=== PATIENT | female | born 1935 | race Caucasian/White ===

== ENCOUNTER 2021-02-05 08:00 | Inpatient (IN) | payer MEDICARE, MEDICAID, SELFPAY ==
[2021-02-05] VITALS (14 sets, daily range): BP systolic 105–154; BP diastolic 58–136; PULSE 86–115; RESP 18–28; TEMP 36.4–37.4; O2SAT 80–99; BMI 23.9
--- NOTE | ~2021-02-05 | CT_ITS ---
EXAMINATION: CT CHEST WITHOUT CONTRAST CLINICAL INFORMATION: Left-sided infiltrate, evaluate for pneumonia versus CHF COMPARISON: CT of the chest 09/12/2019 and chest radiograph 02/05/2021 TECHNIQUE: Multidetector volumetric CT imaging of the chest was done. Axial MIP volume rendering provided. Sagittal and coronal reformatted images were obtained. This CT examination was performed using dose optimization techniques as appropriate, variously including the following: *Automated exposure control *Adjustment of mA and/or kV according to patient size (this includes techniques or standardized protocols for targeted exams where dose is matched to indication/reason for exam; i.e. extremities or head) *Use of iterative reconstruction technique DLP: 306 mGy-cm FINDINGS: ROTOPRINTER: Mild hypoinflation with bilateral pleural effusions. Left shoulder and left hip arthroplasties. Multiple vertebral plasties are visualized. LUNGS: There are multifocal areas of crazy paving with groundglass opacities and interstitial thickening throughout both lungs, most prominent in the left upper lobe. There are central perihilar areas of more confluent consolidation in the left upper lobe and right lower lobe. There is compressive atelectasis in the left lower lobe. MEDIASTINUM: There is mild cardiomegaly. Moderate to severe coronary calcifications. There are chunky calcifications of the mitral valve. No significant mediastinal or hilar lymphadenopathy. No pericardial effusion. Normal caliber of the thoracic aorta with scattered atherosclerotic calcifications. There is a large hiatal hernia, containing a majority of the stomach, unchanged since the prior study. PLEURA: There are small bilateral pleural effusions, left slightly greater than right. AXILLA: No lymphadenopathy. UPPER ABDOMEN: Unremarkable. OSSEOUS STRUCTURES: Multiple vertebroplasty changes are again demonstrated from T9 to L1. Again demonstrated is a compression fracture of the T8 vertebral body with 50-70% loss of height. There are mild compression deformities of T3 and T5, similar to the prior study. There is diffuse osteopenia. CT/CT chest wo con IMPRESSION: The focal areas of crazy paving throughout both lungs, most prominent in the left upper lobe. Additional central perihilar areas of more confluent consolidation in the left upper lobe and right lower lobe. Small bilateral pleural effusions with associated atelectasis at the left lung base. Differential diagnosis is broad and includes multifocal pneumonia, acute interstitial pneumonia, acute respiratory distress syndrome, pulmonary alveolar proteinosis, pulmonary edema, and pulmonary hemorrhage. Atypical infection such as mycoplasma and COVID-19 are also included. Recommend clinical correlation. Large hiatal hernia, unchanged since prior study. Redemonstration of multiple thoracic and upper lumbar vertebral body compression fractures, similar in appearance to the prior study with multiple levels demonstrating vertebroplasty changes.
--- NOTE | ~2021-02-05 | XR_ITS ---
EXAMINATION: XR CHEST CLINICAL INFORMATION: Hypoxia. Left lower lobe pneumonia. COMPARISON: Chest x-ray and CT 09/12/2019 TECHNIQUE: Frontal view of the chest was obtained. FINDINGS: The lungs are hypoexpanded with dense patchy opacity left lateral midlung likely new infiltrate. There is moderate opacification left lung base likely effusion/infiltrate/atelectasis. Minimal haziness in the right lung base as well. Heart size enlarged. Pulmonary vascularity is prominent. No evidence of congestion. There are multiple cement augmentations for lower thoracic compression fractures. XR/XR chest 1V IMPRESSION: New left midlung and left lower lobe infiltrates. Mild bibasilar haziness likely effusion or atelectasis.
--- NOTE | ~2021-02-05 | XR_ITS ---
EXAMINATION: XR CHEST CLINICAL INFORMATION: Follow-up after diuresis. COMPARISON: 02/05/2021 and 09/12/2019. TECHNIQUE: AP portable view of the chest was obtained. FINDINGS: There remains some perihilar interstitial haziness as well as region of disease within the right upper lobe. There appear to be small bilateral pleural effusions with some improvement in left base disease but still with airspace disease which appears to involve the lingula and left lower lobe. Heart normal size. No pneumothorax. Patient status post left shoulder arthroplasty. Patient has had multiple vertebroplasties/kyphoplasties. XR/XR chest 1V IMPRESSION: Bilateral regions of interstitial and airspace disease with perihilar component likely related to edema. There is persistence of the left upper lobe disease and now with region of disease within the right upper lobe. This may be related to interstitial or atypical pneumonitis and edema may be related to pulmonary edema of cardiogenic or noncardiogenic etiology.
--- NOTE | 2021-02-05 08:48 | ECG_ITS ---
Test Reason : SOB Blood Pressure : / mmHG Vent. Rate : 103 BPM Atrial Rate : 088 BPM P-R Int : 000 ms QRS Dur : 092 ms QT Int : 348 ms P-R-T Axes : 000 031 117 degrees QTc Int : 455 ms Artifact in tracing Likely sinus with PACs Nonspecific ST and T wave abnormality Abnormal ECG When compared with ECG of 12-SEP-2019 14:26, Criteria for Inferior infarct are no longer Present T wave inversion less evident in Anterior leads Inverted T waves have replaced nonspecific T wave abnormality in Lateral leads QT has shortened Referred By: Jason Maurice Electronically Signed By:SUZE JOHNSON
[2021-02-05 09:17] LABS: MANUAL DIFF FLAG NO
[2021-02-05 09:20] LABS: Basophils Percent Auto 0.3 % (0-2); Eosinophils Absolute Auto 0.2 X10*3/uL (0.0-0.4); Hemoglobin 10.6 g/dl (12.0-16.0); Imm Gran Abs Auto 0.03 X10*3/uL (0.00-0.03); Imm Gran Pct Auto 0.3 % (0.0-0.4); Lymphocytes Absolute Auto 0.8 X10*3/uL (1.2-4.9); Lymphocytes Percent Auto 6.9 % (20-40); Mean Corpuscular HGB Conc 31.2 g/dl (31.0-35.0); Mean Corpuscular Hemoglobin 26.2 pg (27.0-33.0); Mean Corpuscular Volume 84.2 fL (80-98); Monocytes Absolute Auto 1.1 X10*3/uL (0.1-1.2); Monocytes Percent Auto 9.2 % (2-11); Neutrophils Absolute Auto 9.2 X10*3/uL (2.0-8.3); Neutrophils Percent Auto 81.3 % (45-73); Platelet Count 264 X10*3/uL (160-400); Red Blood Count 4.04 X10*6/uL (4.20-5.50); Red Cell Distribution Width 16.7 % (11.0-16.0); White Blood Count 11.4 X10*3/uL (4.8-10.8)
[2021-02-05] MEDS: cefEPime HCl 2 GM in 0.9 % Sodium Chloride 50 ML IV (09:22)
[2021-02-05] MEDS: 0.9 % Sodium Chloride 1,000 ML 999 ML IV (09:22)
[2021-02-05 09:35] LABS: COVID-19 Test Negative (Negative); IDNOW Serial# 08D9AD1C
[2021-02-05 09:40] LABS: Lactic Acid 2.4 mmol/L (0.5-2.0)
[2021-02-05 09:43] LABS: Alanine Aminotransferase 9 U/L (0-31); Albumin Level 3.2 g/dL (3.5-5.0); Alkaline Phosphatase 42 U/L (39-117); Anion Gap 18 (12-20); Aspartate Amino Transferase 16 U/L (5-31); Bilirubin Total 0.5 mg/dL (0.0-1.0); Blood Urea Nitrogen 30 mg/dL (9-16); Calcium 8.4 mg/dL (8.4-10.2); Carbon Dioxide 22 mmol/L (22-29); Chloride 99 mmol/L (96-108); Creatinine Clr Calc Pharmacy 30.1; Estimated Glomerular Filt Rate 41; Glucose Random 95 mg/dL (60-115); Lipase 16 U/L (8-78); Potassium 4.1 mmol/L (3.3-5.1); Sodium 135 mmol/L (135-145); Total Protein 6.1 g/dL (6.5-8.0)
[2021-02-05 09:49] LABS: B Type Natriuretic Peptide 3188 pg/mL (<100); Troponin-I High Sensitivity 323.3 ng/L (<3.5-17.0)
--- NOTE | 2021-02-05 10:28 | ED.GENADULT ---
HPI - General Adult General Chief complaint: Dyspnea Stated complaint: respiratory infection Time Seen by Provider: 02/05/21 08:37 Source: patient Mode of arrival: EMS Limitations: no limitations History of Present Illness HPI narrative: 85-year-old female who was sent to the emergency department from her care facility for evaluation of increased shortness of breath hypoxia. The patient was diagnosed with a left basilar pneumonia on 01/30/2021 and started on Levaquin. Today the patient was noted to be dyspneic and found to have hypoxia with her O2 saturations in the 80% range on room air, therefore she was sent to the emergency department for evaluation. The patient states that she has been short of breath and had a productive cough for the past 3 days. She states she is coughing up thick, yellow, dark sputum. She denied chest pain, fever or chills. She states that she has had nausea and dry heaves. She denied abdominal pain, change in bowel movements, diarrhea. Related Data Home Medications Medication Instructions Recorded Confirmed albuterol sulfate [ProAir HFA] 1 puff INHALATION QID PRN 02/05/21 02/05/21 alendronate [Fosamax] 70 mg PO QWEEK 02/05/21 02/05/21 aspirin 81 mg PO DAILY 02/05/21 02/05/21 bisacodyl [Dulcolax (bisacodyl)] 10 mg PA DAILY PRN 02/05/21 02/05/21 calcium carbonate [Oyster Shell 500 mg PO BID 02/05/21 02/05/21 Calcium] cholecalciferol (vitamin D3) 5,000 unit PO DAILY 02/05/21 02/05/21 [Vitamin D3] diltiazem HCl 180 mg PO DAILY 02/05/21 02/05/21 fluoxetine [Prozac] 40 mg PO DAILY 02/05/21 02/05/21 fluticasone propion-salmeterol 1 puff INHALATION BID 02/05/21 02/05/21 [Advair Diskus] fluticasone propionate [Flonase] 1 spray INTRANASAL DAILY PRN 02/05/21 02/05/21 guaifenesin [Robitussin] 200 mg PO Q4H PRN 02/05/21 02/05/21 levofloxacin [Levaquin] 500 mg PO DAILY 02/05/21 02/05/21 loratadine [Claritin] 10 mg PO DAILY 02/05/21 02/05/21 metoprolol tartrate 0.5 tab PO DAILY 02/05/21 02/05/21 mirtazapine [Remeron] 15 mg PO BEDTIME 02/05/21 02/05/21 montelukast [Singulair] 10 mg PO QPM 02/05/21 02/05/21 omeprazole 40 mg PO DAILY 02/05/21 02/05/21 prednisone 7.5 mg PO DAILY 02/05/21 02/05/21 umeclidinium [Incruse Ellipta] 1 inh INHALATION DAILY 02/05/21 02/05/21 Allergies Allergy/AdvReac Type Severity Reaction Status Date / Time Penicillins Allergy Intermediate RASH Unverified 05/25/20 15:01 penicillin V Allergy Unknown Verified 07/25/16 00:00 From ZOLOFT Allergy Unknown SWEATS, Uncoded 05/25/20 15:01 JITTERY Review of Systems Review of Systems: Yes all other systems are reviewed and are negative [facility] Past Medical History [facility] Narrative: Social history: The patient denies tobacco, alcohol or drug use. She is currently residing in a [facility] facility. 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 Cognitive impairment, mild, so stated COPD (chronic obstructive pulmonary disease) Diaphragmatic hernia Dysphagia HTN (hypertension) Hyperlipemia Major depression Osteoporosis Surgical History Stented coronary artery Social History Social History Smoked in Last 30 Days: No Use of substances other than those prescribed or required for medical reasons: No Advance Directives: Yes Advance Directives Information Provided: No Advance Directives on File: No Physical Exam Vital Signs: Vital Signs: Last Vital Signs Temp 99.3 F 02/05/21 08:05 Pulse 93 02/05/21 13:03 Resp 22 H 02/05/21 13:03 BP 121/64 02/05/21 13:03 Pulse Ox 95 02/05/21 13:03 Oxygen Flow Rate 4 02/05/21 08:05 Body Mass Index 23.9 Const: General: cooperative; No in distress Orientation/consciousness: oriented to person and oriented to place Limitations: no limitations HENMT: Head: Yes normal to inspection, Yes normocephalic and Yes atraumatic Ears: external ears normal General nose exam: Normal external nose present Face and sinus: Yes normal facial exam Mouth: Normal oral and palatal mucosa present Throat: Yes posterior oropharynx normal Eyes: Periorbital: periorbital findings normal Eyelids: Yes eyelids normal Conjunctivae: conjunctivae normal Sclerae: sclerae normal Corneas: corneas normal Pupils: Equal, round and reactive pupils present Direct Ophthalmoscopy: normal light reflex Neck: Neck: Yes full ROM, Yes no lymphadenopathy, Yes no meningeal signs, Yes trachea midline and Yes supple Chest: Chest palpation & inspection: normal inspection of the chest and normal palpation of entire chest wall Resp: Effort & Inspection: able to speak in complete sentences Auscultation: rales bilateral at the base, rhonchi throughout and no wheezes Cardio: Rate: tachycardic Rhythm: abnormal rhythm irregularly irregular Heart sounds: S1 normal heart sound present, S2 normal heart sound present and no murmurs GI: Inspection: Yes normal to inspection Palpation (GI): Soft to palpation, nontender, no guarding, not rigid and No hepatosplenomegaly present : General: Yes no CVA tenderness Back/Spine/Pelvis: Back: no CVA tenderness Cervical Spine: normal cervical lordosis Thoracic/Lumbar Spine: thoracic and lumbar spine normal to inspection Skin: Lesions: no lesions Rashes: no rashes Wounds: no wounds Neuro: General: oriented to person, oriented to place and no meningeal signs Cranial nerves: Yes CN's II-XII intact bilaterally and Yes Equal, round and reactive pupils present Cognition (Neuro): normal cognition Motor exam (neuro): 5/5 motor strength present throughout Extrem: General: Yes normal to inspection and Yes full ROM Psych: Appearance: well kempt Mental Status: mental status grossly normal Speech and movement: Normal speech and movement present Affect: normal affect Attitude: cooperative Thought process: Normal thought process present Thought content: Normal thought content present Course Course Course Narrative: 85-year-old female who presents emergency department for evaluation of increased shortness of breath and hypoxia. Patient was diagnosed with left basilar pneumonia on 01/30/2021 and has been on Levaquin. The patient was found to be hypoxic at her nursing facility with O2 saturations the 80% range. The patient was placed on a non-rebreather with improvement of her O2 saturation to 96-98%. Vital signs revealed tachycardia with a pulse of 105 and an elevated respiratory rate of 24. Initial pulse ox reading was 89% on 4 L via nasal cannula. Lung exam revealed rales at the bases with diffuse rhonchi without wheezing. Exam is otherwise unremarkable. I did order a CBC, CMP, lactate, blood cultures x2, chest x-ray, EKG. The patient does meet SIRS criteria and she was ordered to get cefepime 2 g IV to treat her for healthcare acquired pneumonia. 1105: Patient's WBC was elevated 11,400, she was anemic with an H&H of 10.6 and 34.0. Platelet count was normal 246,000. Elevated at 30 with slight elevation in her creatinine of 1.25-this is chronic. Patient's BNP was elevated 3188. The patient's troponin was also elevated at 323.3. Patient's 12 EKG revealed atrial fibrillation with a rate of [address] segment elevation depression suggests that the patient has had an NSTEMI most likely type 2 injury secondary to hypoxia. I did discuss the elevated troponin with the covering vp platforms, who recommended the patient be treated with heparin and aspirin. The patient complains of increased dyspnea and she is currently on a non-rebreather mask. I did discuss code status with the patient and with the patient's son Hussein. The patient states that she does not want CPR and she does not want intubation/ventilator support. She does agree with noninvasive support this time which would include high-flow oxygen and BiPAP. I will order high-flow oxygen to see if this improves or dyspnea. I will discuss the patient's presentation with the covering collarette separator. 1143: I did discuss the patient's presentation with the covering collarette separator, and he evaluated the patient emergency department. His impression is the patient may have congestive heart failure supposed pneumonia and he recommended stopping the IV fluid. He recommended furosemide 20 mg IV. He also recommended that the patient get a CT scan of the chest without IV contrast to evaluate whether the patient has pneumonia verses pulmonary edema. He did agree that high-flow oxygen via nasal cannula may give the patient some peep and may improve her dyspnea. He felt that the patient could be managed on the intermediate care unit I will discuss admission with the covering hospitalist. 1205: I discussed patient's presentation with the covering hospitalist, Dr. Briseno. 1335: CT scan of the chest without IV contrast radiology reading was reviewed by me. The reading is consistent with a multifocal interstitial pneumonia versus pulmonary edema/pulmonary hemorrhage. At this time I do not think that this changes the treatment plan. Medical Decision Making Lab Data Result diagrams: 02/05/21 09:11 02/05/21 09:11 Labs: Lab Results 02/05/21 02/05/21 02/05/21 Range/Units 09:10 09:10 09:11 WBC 11.4 H (4.8-10.8) X10*3/uL RBC 4.04 L (4.20-5.50) X10*6/uL Hgb 10.6 L (12.0-16.0) g/dl Hct 34.0 L (37-47) % MCV 84.2 (80-98) fL MCH 26.2 L (27.0-33.0) pg MCHC 31.2 (31.0-35.0) g/dl RDW 16.7 H (11.0-16.0) % Plt Count 264 (160-400) X10*3/uL MPV 10.0 (9.4-12.3) fL Immature Gran % (Auto) 0.3 (0.0-0.4) % Neut % (Auto) 81.3 H (45-73) % Lymph % (Auto) 6.9 L (20-40) % [place] % (Auto) 9.2 (2-11) % Eos % (Auto) 2.0 (0-4) % Baso % (Auto) 0.3 (0-2) % Lymph # (Auto) 0.8 L (1.2-4.9) X10*3/uL [place] # (Auto) 1.1 (0.1-1.2) X10*3/uL Eos # (Auto) 0.2 (0.0-0.4) X10*3/uL Baso # (Auto) 0.0 (0.0-0.2) X10*3/uL Abs Immat Gran (auto) 0.03 (0.00-0.03) X10*3/uL Absolute Neuts (auto) 9.2 H (2.0-8.3) X10*3/uL Absolute Nucleated RBC 0.000 (0.0-0.012) X10*3/uL Nucleated RBC % (auto) 0.0 (0.0-0.2) /100WBC PT (10.8-13.0) SEC INR (0.9-1.1) PTT (Heparin Protocol) (53-77.9) SEC Sodium (135-145) mmol/L Potassium (3.3-5.1) mmol/L Chloride (96-108) mmol/L Carbon Dioxide (22-29) mmol/L Anion Gap (12-20) BUN (9-16) mg/dL Creatinine (0.5-1.4) mg/dL Estim Creat Clear Calc Estimated GFR Random Glucose (60-115) mg/dL Lactic Acid 2.4 H* (0.5-2.0) mmol/L Lactic Acid Fup @ 2Hr (0.5-2.0) mmol/L Calcium (8.4-10.2) mg/dL Total Bilirubin (0.0-1.0) mg/dL AST (5-31) U/L ALT (0-31) U/L Alkaline Phosphatase (39-117) U/L Troponin I High Sens (<3.5-17.0) ng/L B-Natriuretic Peptide (<100) pg/mL Total Protein (6.5-8.0) g/dL Albumin (3.5-5.0) g/dL Lipase (8-78) U/L COVID-19 ([facility]) Negative (Negative) COVID-19 Clin Com See Note 02/05/21 02/05/21 02/05/21 Range/Units 09:11 09:11 11:11 WBC (4.8-10.8) X10*3/uL RBC (4.20-5.50) X10*6/uL Hgb (12.0-16.0) g/dl Hct (37-47) % MCV (80-98) fL MCH (27.0-33.0) pg MCHC (31.0-35.0) g/dl RDW (11.0-16.0) % Plt Count (160-400) X10*3/uL MPV (9.4-12.3) fL Immature Gran % (Auto) (0.0-0.4) % Neut % (Auto) (45-73) % Lymph % (Auto) (20-40) % [place]auf[place] % (Auto) (2-11) % Eos % (Auto) (0-4) % Baso % (Auto) (0-2) % Lymph # (Auto) (1.2-4.9) X10*3/uL [place] # (Auto) (0.1-1.2) X10*3/uL Eos # (Auto) (0.0-0.4) X10*3/uL Baso # (Auto) (0.0-0.2) X10*3/uL Abs Immat Gran (auto) (0.00-0.03) X10*3/uL Absolute Neuts (auto) (2.0-8.3) X10*3/uL Absolute Nucleated RBC (0.0-0.012) X10*3/uL Nucleated RBC % (auto) (0.0-0.2) /100WBC PT (10.8-13.0) SEC INR (0.9-1.1) PTT (Heparin Protocol) (53-77.9) SEC Sodium 135 (135-145) mmol/L Potassium 4.1 (3.3-5.1) mmol/L Chloride 99 (96-108) mmol/L Carbon Dioxide 22 (22-29) mmol/L Anion Gap 18 (12-20) BUN 30 H (9-16) mg/dL Creatinine 1.25 (0.5-1.4) mg/dL Estim Creat Clear Calc 30.1 Estimated GFR 41 Random Glucose 95 (60-115) mg/dL Lactic Acid (0.5-2.0) mmol/L Lactic Acid Fup @ 2Hr (0.5-2.0) mmol/L Calcium 8.4 (8.4-10.2) mg/dL Total Bilirubin 0.5 (0.0-1.0) mg/dL AST 16 (5-31) U/L ALT 9 (0-31) U/L Alkaline Phosphatase 42 (39-117) U/L Troponin I High Sens 323.3 H* 302.5 H* (<3.5-17.0) ng/L B-Natriuretic Peptide 3188 H (<100) pg/mL Total Protein 6.1 L (6.5-8.0) g/dL Albumin 3.2 L (3.5-5.0) g/dL Lipase 16 (8-78) U/L COVID-19 ([facility]) (Negative) COVID-19 Clin Com 02/05/21 02/05/21 Range/Units 11:51 11:52 WBC (4.8-10.8) X10*3/uL RBC (4.20-5.50) X10*6/uL Hgb (12.0-16.0) g/dl Hct (37-47) % MCV (80-98) fL MCH (27.0-33.0) pg MCHC (31.0-35.0) g/dl RDW (11.0-16.0) % Plt Count (160-400) X10*3/uL MPV (9.4-12.3) fL Immature Gran % (Auto) (0.0-0.4) % Neut % (Auto) (45-73) % Lymph % (Auto) (20-40) % [place] % (Auto) (2-11) % Eos % (Auto) (0-4) % Baso % (Auto) (0-2) % Lymph # (Auto) (1.2-4.9) X10*3/uL [place] # (Auto) (0.1-1.2) X10*3/uL Eos # (Auto) (0.0-0.4) X10*3/uL Baso # (Auto) (0.0-0.2) X10*3/uL Abs Immat Gran (auto) (0.00-0.03) X10*3/uL Absolute Neuts (auto) (2.0-8.3) X10*3/uL Absolute Nucleated RBC (0.0-0.012) X10*3/uL Nucleated RBC % (auto) (0.0-0.2) /100WBC PT 14.7 H (10.8-13.0) SEC INR 1.2 H (0.9-1.1) PTT (Heparin Protocol) 26.8 L (53-77.9) SEC Sodium (135-145) mmol/L Potassium (3.3-5.1) mmol/L Chloride (96-108) mmol/L Carbon Dioxide (22-29) mmol/L Anion Gap (12-20) BUN (9-16) mg/dL Creatinine (0.5-1.4) mg/dL Estim Creat Clear Calc Estimated GFR Random Glucose (60-115) mg/dL Lactic Acid (0.5-2.0) mmol/L Lactic Acid Fup @ 2Hr 1.7 (0.5-2.0) mmol/L Calcium (8.4-10.2) mg/dL Total Bilirubin (0.0-1.0) mg/dL AST (5-31) U/L ALT (0-31) U/L Alkaline Phosphatase (39-117) U/L Troponin I High Sens (<3.5-17.0) ng/L B-Natriuretic Peptide (<100) pg/mL Total Protein (6.5-8.0) g/dL Albumin (3.5-5.0) g/dL Lipase (8-78) U/L COVID-19 ([facility]) (Negative) COVID-19 Clin Com ECG Data Attestation: I personally reviewed and interpreted this ECG as follows: Interpretation: 0939: Atrial fibrillation with a rate of 103, normal QRS and QTC durations, Q-wave in lead 3, poor R-wave progression V1 to V2, no ST segment elevation, no ST segment depression, no significant T-wave abnormalities, no old EKG for comparison Critical Care Time Critical Care Time Critical Care Time: Yes Total Critical Care Time: 45 Attestation: Critical Care: The patient was critically ill with a high probability of imminent or life threatening deterioration. I spent greater than 30 minutes of discontinuous time evaluating the patient,delivering critical care at the bedside, discussing and evaluating pertinent data with consultants. Critical care time does not include time spent performing separately billable procedures or teaching. Total time spent performing critical care was 45 minutes. Discharge Plan Discharge Clinical Impression: Non-STEMI (non-ST elevated myocardial infarction), Pulmonary edema Pneumonia Qualifiers: Pneumonia type: due to unspecified organism Laterality: left Lung location: unspecified part of lung Qualified Code(s): J18.9 - Pneumonia, unspecified organism Patient Disposition: Home, Self-Care
[2021-02-05 11:15] LABS: Reflex Lactate? Lactic Acid Added
[2021-02-05] MEDS: Aspirin 81 MG TAB.CHEW 162 MG PO (11:43)
[2021-02-05] MEDS: Furosemide 20 MG/2 ML VIAL IVPUSH (11:44)
--- NOTE | 2021-02-05 11:45 | PM.CCN ---
Critical Care Event Note Summary Date of Service: 02/05/21 Code activated: No Narrative: 85-year-old lady with underlying history of combined systolic and diastolic heart failure been evaluated in ER on 02/05/2021 for progressive hypoxia. Patient has been treated with Levaquin at her of facility for the prior 6 days with no significant changes. She has been coughing yellow sputum for 2 weeks. She has minimal leukocytosis, elevated troponin and BNP, chest x-ray with bibasilar opacities. Patient is normotensive and requires 6 L of supplemental oxygen. She does complain of recently worsening lower extremity edema. Patient has been started on heparin drip and aspirin for likely NSTEMI. Patient appears to be in exacerbation of underlying combined systolic and diastolic heart failure. Would consider IV diuresis and admission to telemetry unit. At this time patient does not require intensive care unit level of care. Please notify for re-evaluation, if patient's condition changes. Critical Care Time (minutes): 0
[2021-02-05 11:58] LABS: Troponin-I High Sensitivity 302.5 ng/L (<3.5-17.0)
[2021-02-05 12:05] LABS: INTERNATIONAL NORM RATIO 1.2 (0.9-1.1); Prothrombin Time 14.7 SEC (10.8-13.0)
[2021-02-05 12:08] LABS: PTT Heparin Drip 26.8 SEC (53-77.9)
[2021-02-05 12:16] LABS: ~Lactic Acid-LAB USE ONLY 1.7 mmol/L (0.5-2.0)
[2021-02-05] MEDS: Heparin Sodium,Porcine 5,000 UNIT/ML VIAL 3900 UNIT IVPUSH (12:16)
[2021-02-05] MEDS: Heparin Sodium,Porcine/1/2NS 25,000 UNIT/250 ML IV.SOLN 7.84 UNIT IVCONT (12:17)
--- NOTE | 2021-02-05 12:29 | P.HPHOSP_ITS ---
History of Present Illness Date of Service: 02/05/21 Chief Complaint: sob, cough 85F presented complaining of shortness of breath and cough. patient is alert and oriented but having difficulty giving history due to shortness of breath, she was brought be EMS from care facility for complaint of sob and hypoxia. she had been treated for pneumonia with levaquin since 01/30/21. on day of presentation patients sob worsened as did her productive cough, she was noted to have hypoxia of 80% so EMS was called. in ED noted to have hypoxia, elevated bnp and troponin. She was seen by mortising machine operator who recommended diuresis high flow, cardiology recommended IV heparin. she was given cefepime. 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 Cognitive impairment, mild, so stated COPD (chronic obstructive pulmonary disease) Diaphragmatic hernia Dysphagia HTN (hypertension) Hyperlipemia Major depression Osteoporosis Family history: reviewed and not pertinent Surgical History Stented coronary artery Social History Smoked in Last 30 Days: No Use of substances other than those prescribed or required for medical reasons: No Advance Directives: Yes Advance Directives Information Provided: No Advance Directives on File: No Meds Allergies Allergy/AdvReac Type Severity Reaction Status Date / Time Penicillins Allergy Intermediate RASH Unverified 05/25/20 15:01 penicillin V Allergy Unknown Verified 07/25/16 00:00 From ZOLOFT Allergy Unknown SWEATS, Uncoded 05/25/20 15:01 JITTERY Active Medications: Current Medications Generic Name Dose Route Start Last Admin Trade Name Freq PRN Reason Stop Dose Admin Heparin Sodium (Porcine) 2,600 unit 02/05/21 11:03 Heparin Sodium,Porcine 5,000 Unit/Ml Vial 40 unit/kg (2600 unit) IVPUSH BOLUS PRN 40 unit/kg - Heparin Protocol Heparin Sodium (Porcine) 5,200 unit 02/05/21 11:03 Heparin Sodium,Porcine 5,000 Unit/Ml Vial 80 unit/kg (5200 unit) IVPUSH BOLUS PRN 80 unit/kg - Heparin Protocol Heparin Sodium/Sodium Chloride 25,000 unit in 250 mls @ 0 mls/hr 02/05/21 11:30 02/05/21 12:17 IVCONT 12 units/kg/hr .Q0M RADHA 7.84 mls/hr Administration Protocol Per Protocol Home Medications Medication Instructions Recorded Confirmed Last Taken Type albuterol sulfate [ProAir HFA] 1 puff INHALATION QID PRN 02/05/21 02/05/21 Unknown History alendronate [Fosamax] 70 mg PO QWEEK 02/05/21 02/05/21 Unknown History aspirin 81 mg PO DAILY 02/05/21 02/05/21 Unknown History bisacodyl [Dulcolax (bisacodyl)] 10 mg [place] DAILY PRN 02/05/21 02/05/21 Unknown History calcium carbonate [Oyster Shell 500 mg PO BID 02/05/21 02/05/21 Unknown History Calcium] cholecalciferol (vitamin D3) 5,000 unit PO DAILY 02/05/21 02/05/21 Unknown History [Vitamin D3] diltiazem HCl 180 mg PO DAILY 02/05/21 02/05/21 Unknown History fluoxetine [Prozac] 40 mg PO DAILY 02/05/21 02/05/21 Unknown History fluticasone propion-salmeterol 1 puff INHALATION BID 02/05/21 02/05/21 Unknown History [Advair Diskus] fluticasone propionate [Flonase] 1 spray INTRANASAL DAILY PRN 02/05/21 02/05/21 Unknown History guaifenesin [Robitussin] 200 mg PO Q4H PRN 02/05/21 02/05/21 Unknown History levofloxacin [Levaquin] 500 mg PO DAILY 02/05/21 02/05/21 Unknown History loratadine [Claritin] 10 mg PO DAILY 02/05/21 02/05/21 Unknown History metoprolol tartrate 0.5 tab PO DAILY 02/05/21 02/05/21 Unknown History mirtazapine [Remeron] 15 mg PO BEDTIME 02/05/21 02/05/21 Unknown History montelukast [Singulair] 10 mg PO QPM 02/05/21 02/05/21 Unknown History omeprazole 40 mg PO DAILY 02/05/21 02/05/21 Unknown History prednisone 7.5 mg PO DAILY 02/05/21 02/05/21 Unknown History umeclidinium [Incruse Ellipta] 1 inh INHALATION DAILY 02/05/21 02/05/21 Unknown History Physical Exam Vital Signs and Narrative: Vital Signs: Last Vital Signs Temp 99.3 F 02/05/21 08:05 Pulse 92 02/05/21 12:21 Resp 27 H 02/05/21 12:21 BP 118/59 L 02/05/21 12:21 Pulse Ox 96 02/05/21 12:21 Oxygen Flow Rate 4 02/05/21 08:05 Body Mass Index 23.9 General: ill appearing, dyspneic HEENT: atraumatic Neck: normal to visual inspection CVS: S1, S2, Rapid, irregular Resp: rhonchi Chest: non tender GI: soft, non tender, non distended : no CVA tenderness Skin: no rashes Extremities: no edema Neuro: Oriented X3, grossly intact Psych: cooperative Results Labs CBC and Chem 7: 02/05/21 09:11 02/05/21 09:11 Labs: Laboratory Results - last 24 hr 02/05/21 02/05/21 02/05/21 09:10 09:10 09:11 MCV 84.2 MCH 26.2 L MCHC 31.2 RDW 16.7 H Plt Count 264 MPV 10.0 Immature Gran % (Auto) 0.3 Neut % (Auto) 81.3 H Lymph % (Auto) 6.9 L [place] % (Auto) 9.2 Eos % (Auto) 2.0 Baso % (Auto) 0.3 Lymph # (Auto) 0.8 L [place] # (Auto) 1.1 Eos # (Auto) 0.2 Baso # (Auto) 0.0 Abs Immat Gran (auto) 0.03 Absolute Neuts (auto) 9.2 H Absolute Nucleated RBC 0.000 Nucleated RBC % (auto) 0.0 PT INR PTT (Heparin Protocol) Anion Gap Estim Creat Clear Calc Estimated GFR Random Glucose Lactic Acid 2.4 H* Lactic Acid Fup @ 2Hr Calcium Total Bilirubin AST ALT Alkaline Phosphatase Troponin I High Sens B-Natriuretic Peptide Total Protein Albumin Lipase COVID-19 ([facility]) Negative COVID-19 Clin Com See Note 02/05/21 02/05/21 02/05/21 09:11 09:11 11:11 MCV MCH MCHC RDW Plt Count MPV Immature Gran % (Auto) Neut % (Auto) Lymph % (Auto) [place] % (Auto) Eos % (Auto) Baso % (Auto) Lymph # (Auto) [place] # (Auto) Eos # (Auto) Baso # (Auto) Abs Immat Gran (auto) Absolute Neuts (auto) Absolute Nucleated RBC Nucleated RBC % (auto) PT INR PTT (Heparin Protocol) Anion Gap 18 Estim Creat Clear Calc 30.1 Estimated GFR 41 Random Glucose 95 Lactic Acid Lactic Acid Fup @ 2Hr Calcium 8.4 Total Bilirubin 0.5 AST 16 ALT 9 Alkaline Phosphatase 42 Troponin I High Sens 323.3 H* 302.5 H* B-Natriuretic Peptide 3188 H Total Protein 6.1 L Albumin 3.2 L Lipase 16 COVID-19 ([facility]) COVID-[employer] 02/05/21 02/05/21 11:51 11:52 MCV MCH MCHC RDW Plt Count MPV Immature Gran % (Auto) Neut % (Auto) Lymph % (Auto) [place] % (Auto) Eos % (Auto) Baso % (Auto) Lymph # (Auto) [place] # (Auto) Eos # (Auto) Baso # (Auto) Abs Immat Gran (auto) Absolute Neuts (auto) Absolute Nucleated RBC Nucleated RBC % (auto) PT 14.7 H INR 1.2 H PTT (Heparin Protocol) 26.8 L Anion Gap Estim Creat Clear Calc Estimated GFR Random Glucose Lactic Acid Lactic Acid Fup @ 2Hr 1.7 Calcium Total Bilirubin AST ALT Alkaline Phosphatase Troponin I High Sens B-Natriuretic Peptide Total Protein Albumin Lipase COVID-19 ([facility]TE[facility]) COVID-19 D4P Com Imaging Radiologist's Impressions: Impressions Chest X-Ray 02/05/21 08:49 IMPRESSION: New left midlung and left lower lobe infiltrates. Mild bibasilar haziness likely effusion or atelectasis. Assessment and Plan (1) A-fib: Status: Acute 85F presented with sob and cough, found to have hypoxia, pneumonia, nstemi Severe sepsis present on admission secondary to pneumonia complicated by acute a hypoxic respiratory failure and acute on chronic systolic and diastolic CHF and NSTEMI Ceftriaxone, follow up cultures High-flow O2, patient is DNR DNI but open to noninvasive ventilation IV Lasix IV heparin, 48 hours, echo, cardiology eval COPD with exacerbation Bronchodilators, steroids CAD Aspirin AFib IV heparin (does not appear to be on anticoagulation at home) Metoprolol, diltiazem Osteoporosis Holding alendronate
[2021-02-05] MEDS: methylPREDNISolone Sod Succ 40 MG/ML VIAL IVPUSH (14:35)
[2021-02-05] MEDS: 0.9 % Sodium Chloride Flush 3 ML SYRINGE IVFLUSH ×2 (14:41→21:00)
[2021-02-05] MEDS: Furosemide 40 MG/4 ML VIAL IVPUSH (17:04)
[2021-02-05 20:17] LABS: PTT Heparin Drip 97.8 SEC (53-77.9)
[2021-02-05] MEDS: Montelukast Sodium 10 MG TABLET PO (21:00)
[2021-02-05] MEDS: Mirtazapine 15 MG TABLET PO (21:00)
--- NOTE | 2021-02-05 21:28 | PC.NURSE ---
ptt hd at 1940 came back as 119. Heparin gtt not turned off during draw. notified. pump shut off and ptthd was redrawn at 1999. Results came back 97.8. Pump left off for 1 hour per protocol. Restarted at 2100 at 9units/kg/hr. Redraw ordered for 0300 on 02/06/21.
--- NOTE | 2021-02-05 23:08 | PC.NURSE ---
pt had 4 bt vtach at 2300. pt asymptomatic. aware. will reassess
[2021-02-06] VITALS (13 sets, daily range): BP systolic 94–123; BP diastolic 57–74; PULSE 69–130; RESP 18–26; TEMP 35.6–36.7; O2SAT 92–99
[2021-02-06 00:06] LABS: Anion Gap 20 (12-20); Blood Urea Nitrogen 32 mg/dL (9-16); Carbon Dioxide 22 mmol/L (22-29); Chloride 101 mmol/L (96-108); Creatinine Clr Calc Pharmacy 28.3; Estimated Glomerular Filt Rate 38; Glucose Random 131 mg/dL (60-115); Magnesium 2.1 mg/dL (1.6-2.6); Potassium 3.7 mmol/L (3.3-5.1); Sodium 139 mmol/L (135-145)
[2021-02-06] MEDS: methylPREDNISolone Sod Succ 40 MG/ML VIAL IVPUSH ×2 (02:25→14:46)
[2021-02-06 03:12] LABS: PTT Heparin Drip 56.7 SEC (53-77.9)
--- NOTE | 2021-02-06 03:32 | PC.NURSE ---
heparin gtt unchanged. ptthd came back at 0300 as 56.7. gtt currently running at 9 units/kg/hr. redraw ordered for 0930 02/06/21.
[2021-02-06] MEDS: Omeprazole 40 MG CAPSULE.DR PO (06:14)
[2021-02-06 06:32] LABS: Hematocrit 35.4 % (37-47); Hemoglobin 10.6 g/dl (12.0-16.0); Mean Corpuscular HGB Conc 29.9 g/dl (31.0-35.0); Mean Corpuscular Hemoglobin 25.6 pg (27.0-33.0); Mean Corpuscular Volume 85.5 fL (80-98); Mean Platelet Volume 10.5 fL (9.4-12.3); Platelet Count 248 X10*3/uL (160-400); Red Blood Count 4.14 X10*6/uL (4.20-5.50); Red Cell Distribution Width 16.8 % (11.0-16.0); White Blood Count 9.9 X10*3/uL (4.8-10.8)
[2021-02-06 06:48] LABS: Anion Gap 19 (12-20); Blood Urea Nitrogen 35 mg/dL (9-16); Calcium 8.1 mg/dL (8.4-10.2); Carbon Dioxide 23 mmol/L (22-29); Chloride 102 mmol/L (96-108); Creatinine Clr Calc Pharmacy 30.1; Estimated Glomerular Filt Rate 41; Glucose Random 110 mg/dL (60-115); Magnesium 2.1 mg/dL (1.6-2.6); Potassium 3.9 mmol/L (3.3-5.1); Sodium 140 mmol/L (135-145)
[2021-02-06 06:58] LABS: INTERNATIONAL NORM RATIO 1.1 (0.9-1.1); Prothrombin Time 13.5 SEC (10.8-13.0)
[2021-02-06] MEDS: FLUoxetine HCl 20 MG CAPSULE 40 MG PO (08:22)
[2021-02-06] MEDS: Aspirin 81 MG TAB.CHEW PO (08:22)
[2021-02-06] MEDS: Azithromycin 500 MG in 0.9 % Sodium Chloride 250 ML 125 MG IV (08:22)
[2021-02-06] MEDS: Furosemide 40 MG/4 ML VIAL IVPUSH ×2 (08:23→17:41)
[2021-02-06] MEDS: Cholecalciferol (Vitamin D3) 25 MCG TABLET 125 MCG PO (08:23)
[2021-02-06] MEDS: 0.9 % Sodium Chloride Flush 3 ML SYRINGE IVFLUSH ×3 (08:23→22:52)
[2021-02-06] MEDS: dilTIAZem HCL CD 180 MG CAP.ER.24H PO (08:24)
[2021-02-06] MEDS: Loratadine 10 MG TABLET PO (08:24)
--- NOTE | 2021-02-06 08:48 | MHC.CM.PN ---
Patient has a diagnosis of Mild Cognitive Impairment; CM spoke with Sister/HCP/Anayeli @ [phone] and addressed IMM with her, providing her with the original and placing a copy on the chart.. Patient has been a LTC Resident at [facility] and the goal for dc is to return there. CM has initiated and will follow for dc planning.
--- NOTE | 2021-02-06 09:16 | HO.PM.IMPN ---
Subjective Subjective Date of Service: 02/06/21 Interval History: still sob, improved from yesterday Cardiovascular Cardiovascular: Reports no additional cardiovascular complaints Gastrointestinal Gastrointestinal: Reports no additional gastrointestinal complaints Physical Exam Vital Signs: Vital Signs: Last Vital Signs Temp 98.0 F 02/06/21 07:34 Pulse 122 H 02/06/21 08:24 Resp 18 02/06/21 07:46 BP 104/71 02/06/21 08:24 Pulse Ox 99 02/06/21 07:34 Oxygen Flow Rate 4 02/05/21 08:05 Body Mass Index 23.9 General: AO X 3, elderly frail woman, dyspneic but improved from yesterday Resp: rhonchi CVS: S1,S2,Rapid irregular GI: soft, non tender, non distended Neuro: motor grossly intact Psych: appropriate affect Objective Data Current Medications Generic Name Dose Route Start Last Admin Trade Name Freq PRN Reason Stop Dose Admin Albuterol Sulfate 1 puff 02/05/21 13:24 Albuterol Sulfate 90 Mcg 8 Gm Inhaler INHALE QID PRN Shortness Of Breath Or Wheezing Aspirin 81 mg 02/06/21 09:00 02/06/21 08:22 Aspirin 81 Mg Tab.Chew PO 81 mg DAILY RADHA Administration Bisacodyl 10 mg 02/05/21 13:24 Bisacodyl 10 Mg Supp.Rect RI DAILY PRN Constipation Calcium Carbonate 500 mg 02/05/21 17:00 02/06/21 08:23 Calcium Carbonate 500 Mg Tablet PO 500 mg BIDWM RADHA Administration Diltiazem HCl 180 mg 02/06/21 09:00 02/06/21 08:24 Diltiazem Hcl Cd 180 Mg Cap.Er.24h PO 180 mg DAILY RADHA Administration Protocol Fluoxetine HCl 40 mg 02/06/21 09:00 02/06/21 08:22 Fluoxetine Hcl 20 Mg Capsule PO 40 mg DAILY RADHA Administration Fluticasone/Vilanterol 1 puff 02/06/21 08:00 02/06/21 07:44 Fluticasone/Vilanterol 200/25 Blst.W.Dev INHALE Not Given RDAILY RADHA Furosemide 40 mg 02/05/21 18:00 02/06/21 08:23 Furosemide 40 Mg/4 Ml Vial IVPUSH 40 mg BID@0900,1800 RADHA Administration Protocol Heparin Sodium (Porcine) 2,600 unit 02/05/21 11:03 Heparin Sodium,Porcine 5,000 Unit/Ml Vial 40 unit/kg (2600 unit) IVPUSH BOLUS PRN 40 unit/kg - Heparin Protocol Heparin Sodium (Porcine) 5,200 unit 02/05/21 11:03 Heparin Sodium,Porcine 5,000 Unit/Ml Vial 80 unit/kg (5200 unit) IVPUSH BOLUS PRN 80 unit/kg - Heparin Protocol Heparin Sodium/Sodium Chloride 25,000 unit in 250 mls @ 0 mls/hr 02/05/21 11:30 02/06/21 03:29 IVCONT 9 units/kg/hr .Q0M RADHA 5.88 mls/hr Titration Protocol Per Protocol Ceftriaxone Sodium 1 gm/ 50 mls @ 100 mls/hr 02/06/21 18:00 Sodium Chloride IV Q24H RADHA Azithromycin 500 mg/ Sodium 250 mls @ 125 mls/hr 02/06/21 07:30 02/06/21 08:22 Chloride IV 125 mls/hr Q24H RADHA Administration Loratadine 10 mg 02/06/21 09:00 02/06/21 08:24 Loratadine 10 Mg Tablet PO 10 mg DAILY RADHA Administration Methylprednisolone Sodium Succinate 40 mg 02/05/21 14:00 02/06/21 02:25 Methylprednisolone Sod Succ 40 Mg/Ml Vial IVPUSH 40 mg Q12H RADHA Administration Metoprolol Tartrate 25 mg 02/06/21 08:45 Metoprolol Tartrate 25 Mg Tablet PO DAILY RADHA Protocol Mirtazapine 15 mg 02/05/21 21:00 02/05/21 21:00 Mirtazapine 15 Mg Tablet PO 15 mg BEDTIME RADHA Administration Montelukast Sodium 10 mg 02/05/21 21:00 02/05/21 21:00 Montelukast Sodium 10 Mg Tablet PO 10 mg BEDTIME RADHA Administration Non-Formulary Medication 1 inhalation 02/06/21 09:00 Umeclidinium [Incruse Ellipta] INHALE DAILY RADHA Omeprazole 40 mg 02/06/21 06:30 02/06/21 06:14 Omeprazole 40 Mg Capsule.Dr PO 40 mg DAILY@0630 RADHA Administration Sodium Chloride 3 ml 02/05/21 16:00 02/06/21 08:23 0.9 % Sodium Chloride Flush 3 Ml Syringe IVFLUSH 3 ml QSHIFT RADHA Administration Vitamin D 125 mcg 02/06/21 09:00 02/06/21 08:23 Cholecalciferol (Vitamin D3) 25 Mcg Tablet PO 125 mcg DAILY RADHA Administration Labs CBC & Chem 7: 02/06/21 05:44 02/06/21 06:05 Assessment and Plan (1) A-fib: Status: Acute Assessment and Plan: 85F presented with sob and cough, found to have hypoxia, pneumonia, nstemi Severe sepsis present on admission secondary to pneumonia complicated by acute a hypoxic respiratory failure and acute on chronic systolic and diastolic CHF and NSTEMI CT chest with craxy paving, ddx includes atypical pneumonia, ARDS, pulmonary edema continue ceftriaxone, azithro check resp viral panel, urine strep and legionella blood cultures, ID eval IV lasix repeat CXR wean high flow as tolerated continue conservative management for NSTEMI with iv heparin, echo, cardio eval, troponin fdecreased from 323 to 302 COPD with exacerbation Bronchodilators, steroids CAD Aspirin AFib with rcr IV heparin (does not appear to be on anticoagulation at home) Metoprolol increase from 12.5mg bid to 25mg bid, c/w diltiazem Osteoporosis Holding alendronate DNR/DNI
[2021-02-06] MEDS: Metoprolol Tartrate 25 MG TABLET PO (09:54)
[2021-02-06 10:30] LABS: Hematocrit 33.6 % (37-47); Hemoglobin 10.2 g/dl (12.0-16.0); Mean Corpuscular HGB Conc 30.4 g/dl (31.0-35.0); Mean Corpuscular Volume 85.7 fL (80-98); Mean Platelet Volume 10.3 fL (9.4-12.3); Platelet Count 257 X10*3/uL (160-400); Red Blood Count 3.92 X10*6/uL (4.20-5.50); Red Cell Distribution Width 16.7 % (11.0-16.0)
[2021-02-06 10:38] LABS: PTT Heparin Drip 46.4 SEC (53-77.9)
[2021-02-06] MEDS: Heparin Sodium,Porcine 5,000 UNIT/ML VIAL 2600 UNIT IVPUSH (10:52)
[2021-02-06 11:21] LABS: Adenovirus PCR Not Detected (Not Detect.); Bordetella parapertussis PCR Not Detected (Not Detect.); Bordetella pertussis PCR Not Detected (Not Detect.); Chlamydia pneumoniae PCR Not Detected (Not Detect.); Coronavirus 229E PCR Not Detected (Not Detect.); Coronavirus HKU1 PCR Not Detected (Not Detect.); Coronavirus NL63 PCR Not Detected (Not Detect.); Coronavirus OC43 PCR Not Detected (Not Detect.); Human metapneumovirus PCR Not Detected (Not Detect.); Influenza A PCR Not Detected (Not Detect.); Influenza B PCR Not Detected (Not Detect.); Mycoplasma pneumoniae PCR Not Detected (Not Detect.); Parainfluenza 1 PCR Not Detected (Not Detect.); Parainfluenza 2 PCR Not Detected (Not Detect.); Parainfluenza 3 PCR Not Detected (Not Detect.); Parainfluenza 4 PCR Not Detected (Not Detect.); RSV PCR Not Detected (Not Detect.); Rhino/Enterovirus PCR Not Detected (Not Detect.); SARS-CoV-2 PCR Not Detected (Not Detect.)
[2021-02-06] MEDS: Heparin Sodium,Porcine/1/2NS 25,000 UNIT/250 ML IV.SOLN 7.19 UNIT IVCONT (12:20)
--- NOTE | 2021-02-06 13:05 | W.PM.IDCN ---
History of Present Illness Data of Consult Service Date: 02/06/21 Requesting physician: Brett Briseno Primary Care Provider: Washington Martínez MD HPI Reason for consult: lung infiltrates She presents to hospital with shortness of breath and hypoxia from residential. She had oxygen saturation in 80s there and was placed on oxygen. She also has yellow-brown productive sputum She has had Pseudomonas in past. 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 Review of Systems Review of Systems: Yes all other systems are reviewed and are negative [facility] Past Medical History Medical History (Updated 02/06/21 @ 13:18 by Maia Ruiz MD) A-fib Anxiety Atherosclerotic heart disease of [place] coronary artery without angina pectoris Bronchiectasis Chronic combined systolic and diastolic congestive heart failure Cognitive impairment, mild, so stated COPD (chronic obstructive pulmonary disease) Diaphragmatic hernia Dysphagia HTN (hypertension) Hyperlipemia Major depression Osteoporosis Family History Family history: reviewed and not pertinent Surgical History Surgical History Stented coronary artery Social History Social History Housing: Assisted Living Facility Patient Tobacco Use Status: Never used Tobacco Smoked in Last 30 Days: No Use of substances other than those prescribed or required for medical reasons: No Currently Displaying Signs/Symptoms of Drug Intoxication Withdrawal: No Have you been hit, kicked, punched, or otherwise hurt by someone within the past year? If so, by whom?: No Do you feel safe in your current relationship?: No Is there a partner from a previous relationship who is making you feel unsafe now?: No Are you made to feel afraid or neglected: No Advance Directives: Yes Advance Directives Information Provided: No Advance Directives on File: No Advance Directives Date on File: 02/05/21 Do you have thoughts of harming others: None Do you have a plan to hurt others: No Plan Recently lost weight without trying: Yes How much weight loss: 14-23 pounds Eating poorly because of decreased appetite: Yes Nutrition screen score: 5 Nutrition Risks: Poor intake 0-25% >4 days Patient : No : No Poor oral hygiene: No service: No Current occupational status: retired [employer] Allergies Allergy/AdvReac Type Severity Reaction Status Date / Time Penicillins Allergy Intermediate RASH Verified 02/05/21 15:05 penicillin V Allergy Unknown Rash Verified 02/05/21 15:05 From ZOLOFT AdvReac Unknown SWEATS, Uncoded 02/05/21 15:05 JITTERY Active Medications: Current Medications Generic Name Dose Route Start Last Admin Trade Name Freq PRN Reason Stop Dose Admin Albuterol Sulfate 1 puff 02/05/21 13:24 Albuterol Sulfate 90 Mcg 8 Gm Inhaler INHALE QID PRN Shortness Of Breath Or Wheezing Aspirin 81 mg 02/06/21 09:00 02/06/21 08:22 Aspirin 81 Mg Tab.Chew PO 81 mg DAILY RADHA Administration Bisacodyl 10 mg 02/05/21 13:24 Bisacodyl 10 Mg Supp.Rect [place] DAILY PRN Constipation Calcium Carbonate 500 mg 02/05/21 17:00 02/06/21 08:23 Calcium Carbonate 500 Mg Tablet PO 500 mg BIDWM RADHA Administration Diltiazem HCl 180 mg 02/06/21 09:00 02/06/21 08:24 Diltiazem Hcl Cd 180 Mg Cap.Er.24h PO 180 mg DAILY RADHA Administration Protocol Fluoxetine HCl 40 mg 02/06/21 09:00 02/06/21 08:22 Fluoxetine Hcl 20 Mg Capsule PO 40 mg DAILY RADHA Administration Fluticasone/Vilanterol 1 puff 02/06/21 08:00 02/06/21 07:44 Fluticasone/Vilanterol 200/25 Blst.W.Dev INHALE Not Given RDAILY [facility] Furosemide 40 mg 02/05/21 18:00 02/06/21 08:23 Furosemide 40 Mg/4 Ml Vial IVPUSH 40 mg BID@0900,1800 RADHA Administration Protocol Heparin Sodium (Porcine) 2,600 unit 02/05/21 11:03 02/06/21 10:52 Heparin Sodium,Porcine 5,000 Unit/Ml Vial 40 unit/kg (2600 unit) 2,600 unit IVPUSH Administration BOLUS PRN 40 unit/kg - Heparin Protocol Heparin Sodium (Porcine) 5,200 unit 02/05/21 11:03 Heparin Sodium,Porcine 5,000 Unit/Ml Vial 80 unit/kg (5200 unit) IVPUSH BOLUS PRN 80 unit/kg - Heparin Protocol Heparin Sodium/Sodium Chloride 25,000 unit in 250 mls @ 0 mls/hr 02/05/21 11:30 02/06/21 12:20 IVCONT 11 units/kg/hr .Q0M RADHA 7.19 mls/hr Administration Protocol Per Protocol Ceftriaxone Sodium 1 gm/ 50 mls @ 100 mls/hr 02/06/21 18:00 Sodium Chloride IV Q24H RADHA Azithromycin 500 mg/ Sodium 250 mls @ 125 mls/hr 02/06/21 07:30 02/06/21 11:20 Chloride IV Infused Q24H RADHA Infusion Loratadine 10 mg 02/06/21 09:00 02/06/21 08:24 Loratadine 10 Mg Tablet PO 10 mg DAILY RADHA Administration Methylprednisolone Sodium Succinate 40 mg 02/05/21 14:00 02/06/21 02:25 Methylprednisolone Sod Succ 40 Mg/Ml Vial IVPUSH 40 mg Q12H RADHA Administration Metoprolol Tartrate 25 mg 02/06/21 08:45 02/06/21 09:54 Metoprolol Tartrate 25 Mg Tablet PO 25 mg DAILY RADHA Administration Protocol Mirtazapine 15 mg 02/05/21 21:00 02/05/21 21:00 Mirtazapine 15 Mg Tablet PO 15 mg BEDTIME RADHA Administration Montelukast Sodium 10 mg 02/05/21 21:00 02/05/21 21:00 Montelukast Sodium 10 Mg Tablet PO 10 mg BEDTIME RADHA Administration Non-Formulary Medication 1 inhalation 02/06/21 09:00 Umeclidinium [Incruse Ellipta] INHALE DAILY [facility] Omeprazole 40 mg 02/06/21 06:30 02/06/21 06:14 Omeprazole 40 Mg Capsule.Dr PO 40 mg DAILY@0630 [facility] Administration Sodium Chloride 3 ml 02/05/21 16:00 02/06/21 08:23 0.9 % Sodium Chloride Flush 3 Ml Syringe IVFLUSH 3 ml QSHIFT [facility] Administration Vitamin D 125 mcg 02/06/21 09:00 02/06/21 08:23 Cholecalciferol (Vitamin D3) 25 Mcg Tablet PO 125 mcg DAILY [facility] Administration Home Medications Medication Instructions Recorded Confirmed Last Taken Type albuterol sulfate [ProAir HFA] 1 puff INHALATION QID PRN 02/05/21 02/05/21 Unknown History alendronate [Fosamax] 70 mg PO QWEEK 02/05/21 02/05/21 Unknown History aspirin 81 mg PO DAILY 02/05/21 02/05/21 Unknown History bisacodyl [Dulcolax (bisacodyl)] 10 mg [place] DAILY PRN 02/05/21 02/05/21 Unknown History calcium carbonate [Oyster Shell 500 mg PO BID 02/05/21 02/05/21 Unknown History Calcium] cholecalciferol (vitamin D3) 5,000 unit PO DAILY 02/05/21 02/05/21 Unknown History [Vitamin D3] diltiazem HCl 180 mg PO DAILY 02/05/21 02/05/21 Unknown History fluoxetine [Prozac] 40 mg PO DAILY 02/05/21 02/05/21 Unknown History fluticasone propion-salmeterol 1 puff INHALATION BID 02/05/21 02/05/21 Unknown History [Advair Diskus] fluticasone propionate [Flonase] 1 spray INTRANASAL DAILY PRN 02/05/21 02/05/21 Unknown History guaifenesin [Robitussin] 200 mg PO Q4H PRN 02/05/21 02/05/21 Unknown History levofloxacin [Levaquin] 500 mg PO DAILY 02/05/21 02/05/21 Unknown History loratadine [Claritin] 10 mg PO DAILY 02/05/21 02/05/21 Unknown History metoprolol tartrate 0.5 tab PO DAILY 02/05/21 02/05/21 Unknown History mirtazapine [Remeron] 15 mg PO BEDTIME 02/05/21 02/05/21 Unknown History montelukast [Singulair] 10 mg PO QPM 02/05/21 02/05/21 Unknown History omeprazole 40 mg PO DAILY 02/05/21 02/05/21 Unknown History prednisone 7.5 mg PO DAILY 02/05/21 02/05/21 Unknown History umeclidinium [Incruse Ellipta] 1 inh INHALATION DAILY 02/05/21 02/05/21 Unknown History Physical Exam Vital Signs: Vital Signs: Last Vital Signs Temp 98.0 F 02/06/21 07:34 Pulse 130 H 02/06/21 09:54 Resp 18 02/06/21 10:54 BP 104/70 02/06/21 09:54 Pulse Ox 99 02/06/21 07:34 Oxygen Flow Rate 4 02/05/21 08:05 Body Mass Index 23.9 Const: General: cooperative Orientation/consciousness: patient oriented x3 HENMT: Head: Yes normal to inspection Mouth: Normal oral and palatal mucosa present Eyes: General: appearance normal, both eyes and all related structures Resp: Effort & Inspection: normal respiratory effort Cardio: Rate: regular rate Rhythm: regular rhythm GI: Palpation (GI): Soft to palpation and nontender : General: Yes no CVA tenderness Back/Spine/Pelvis: Back: no CVA tenderness Skin: General skin exam: no rashes or lesions noted Neuro: General: patient oriented x3 Extrem: General: Yes normal to inspection Results Labs CBC & Chem 7: 02/06/21 10:19 02/06/21 06:05 Labs: Short CBC 02/06/21 02/06/21 Range/Units 05:44 10:19 WBC 9.9 9.0 (4.8-10.8) X10*3/uL Hgb 10.6 L 10.2 L (12.0-16.0) g/dl Hct 35.4 L 33.6 L (37-47) % Plt Count 248 257 (160-400) X10*3/uL BMP 02/05/21 02/06/21 23:22 06:05 Sodium 139 140 Potassium 3.7 3.9 Chloride 101 102 Carbon Dioxide 22 23 BUN 32 H 35 H Creatinine 1.33 1.25 Calcium 8.0 L 8.1 L Microbiology Microbiology Results: Microbiology 02/05/21 09:22 Blood - Venous Blood Culture - Preliminary No growth after 24 hours. 02/05/21 09:10 Blood - Venous Blood Culture - Preliminary No growth after 24 hours. Assessment and Plan (1) COPD (chronic obstructive pulmonary disease): Status: Acute (2) Acute respiratory failure with hypoxia: Status: Acute (3) Bronchiectasis: Status: Acute There is likely bronchiectasis and probable early pneumonia with multiple areas of infiltrates in lungs This is chronic as gets antibiotics every three months Multiple organisms can appear as can RONAK Would continue Ceftriaxone and Azithromycin 2-3 days and then po Doxycycline for a week See Pulmonary Await sputum culture and urine Legionella and strep pneumonia Procalcitonin
--- NOTE | 2021-02-06 13:24 | CA_ITS ---
Transthoracic Echocardiogram Patient (Last, First, Middle): Yeimi Anderson, Gender: Female Date of : 1935 Age: 85 Procedure Date: 02/06/2021 Procedure Type: Transthoracic Echocardiogram Location: [facility] – [place] Height: 165.1 cm Weight: 64.86 kg BSA: 1.72 m2 Heart Rate: bpm BP: 122 / 60 mmHg Barrel Lathe Operator: Referring MD: Brett Briseno MD Symptoms: nstemi, chf Study Quality: Fair ECG Rhythm: Atrial Fibrillation Conclusions: - Mildly increased left ventricular cavity size. - The left ventricular systolic function is severely decreased. The visually estimated ejection fraction is between 15-20%. - The left atrium is severely dilated. - There is mild aortic valve stenosis. The peak aortic velocity is 1.78 m/s. The aortic valve area is 0.91 cm2. There is no aortic valve regurgitation. Calculated VERENICE appears smaller than 2-D appearance of the valve and severity is overestimated. Patient has low stroke volume. - There is moderate mitral valve regurgitation. - Moderately elevated right atrial pressure. Mild to moderate pulmonary hypertension is present. Findings Procedure Information Contrast agent, definity, is being given per protocol without apparent complications. Left Ventricle Mildly increased left ventricular cavity size. There is normal left ventricular wall thickness. The left ventricular systolic function is severely decreased. The visually estimated ejection fraction is between 15 20%. Diastolic function is indeterminate on the basis of available data. Right Ventricle Normal right ventricular cavity size and systolic function. Atria The left atrium is severely dilated. Aortic Valve There is a normal trileaflet aortic valve. There is mild aortic valve stenosis. The peak aortic velocity is 1.78 m/s. The aortic valve area is 0.91 cm2. There is no aortic valve regurgitation. Calculated VERENICE appears smaller than 2-D appearance of the valve and severity is overestimated. Patient has low stroke volume. Mitral Valve There is severe mitral annular calcification. There is moderate mitral valve regurgitation. There is no mitral valve stenosis. Pulmonic Valve The pulmonic valve was not well visualized. Tricuspid Valve Normal tricuspid valve structure. There is moderate tricuspid valve regurgitation. Moderately elevated right atrial pressure. Mild to moderate pulmonary hypertension is present. Great Vessels All visible segments of the aorta are normal in size. Venous The inferior vena cava is dilated and collapses less than 50% with inspiration. Pericardium/Pleural There is no evidence of pericardial effusion. Prior Study Comparison Changes noted compared to prior study dated: 03/08/2016. LVEF severely reduced. Measurements 2D Linear Measurements IVSd: 0.80 0.6-0.9/0.6-1.0 cm LVIDd: 5.55 3.9-5.3/4.2-5.9 cm LVIDd Index: 3.23 2.4-3.2/2.2-3.1 cm/m2 LVIDs: 5.15 2.0-3.6 cm LVPWd: 0.75 0.7-1.1 cm Ao Root: 2.80 2.1-3.5 cm LA Diam: 4.40 2.7-3.8/3.0-4.0 cm LAIDs Index: 2.56 1.5-2.3 cm/m2 LV Mass: 194.59 67-162/88-224 g LV Mass Index: 113.14 43-95/49-115 g/m2 LVOT Diam: 2.00 3.0+(-)1.3 cm Mitral Valve MV VTI: 0.40 MV Pk Forest: 1.45 MV Mn Forest: 0.79 MV Pk Grad: 8.00 MV Mn Grad: 3.00 MV Pk E: 1.29 MV PK A: 1.14 MV Decel Time: 155.00 E/A: 1.10 E'Lateral: 5.55 E'Medial: 3.15 E/E' Med: 41.00 E/E' Lat: 23.20 PHT: 45.00 MVA PHT: 4.89 MVA Continuity: 0.86 Decel [place]: 8.31 Aortic Valve AoV Pk Forest: 1.78 AoV Mn Forest: 1.24 AoV VTI: 0.38 AoV Pk Grad: 13.00 Aov Mn Grad: 7.00 VERENICE Cont.VTI: 0.91 LVOT LVOT Pk Forest: 0.47 LVOT Mn Forest: 0.34 LVOT VTI: 0.11 LVOT Pk Grad: 1.00 LVOT Mn Grad: 1.00 LVOT Diam: 2.00 LVOT Area: 3.14 Diastolic Function MV Pk E: 1.29 MV Pk A: 1.14 E/A: 1.10 E'Medial: 3.15 E/E' Med: 41.00 E' Laterial: 5.55 E/E' Lat: 23.20 Tricuspid Valve TR Pk Forest: 2.98 TR Pk Grad: 36.00 RA Press: 15.00 RVSP: 46.00 Great Vessels Aorta Ao Root-2D: 2.80 2.0-3.7 cm Pulmonary Valve PV Pk Forest: 0.62 Peak PV Grad: 2.00 Updated in Other Vendor System with Status of Final Bowen Collins MD electronically signed on 02/07/2021 3:43:06 PM with status of Final
--- NOTE | 2021-02-06 15:42 | PM.CNCAR ---
History of Present Illness History of Present Illness Date of Service: 02/06/21 Requesting physician: Brett Briseno Chief complaint: NSTEMI CHF Narrative: Pleasant 85-year-old female with background history of coronary artery disease with inferior wall GA in April 2009 for which she underwent bare metal stent to right coronary artery. She is presenting now for shortness of breath and concern for pneumonia. She has been noticed to have mildly abnormal troponin levels. Denies any chest discomfort. She is on high-flow nasal cannula and is short of breath. She is saying she coughs every time she eats or drinks anything. Labs were reviewed and she has mildly abnormal troponin level of 323 and 303. She was also thought to have atrial fibrillation because her heart rate is quite irregular. It appears she has sinus rhythm with premature atrial complexes on telemetry and ECG. She has no palpitations. [facility] Past Medical History Medical History (Updated 02/06/21 @ 13:18 by Maia Ruiz MD) A-fib Anxiety Atherosclerotic heart disease of [place] coronary artery without angina pectoris Bronchiectasis Chronic combined systolic and diastolic congestive heart failure Cognitive impairment, mild, so stated COPD (chronic obstructive pulmonary disease) Diaphragmatic hernia Dysphagia HTN (hypertension) Hyperlipemia Major depression Osteoporosis Family History Family history: reviewed and not pertinent Surgical History Surgical History Stented coronary artery Social History Social History Housing: Assisted Living Facility Patient Tobacco Use Status: Never used Tobacco Smoked in Last 30 Days: No Use of substances other than those prescribed or required for medical reasons: No Currently Displaying Signs/Symptoms of Drug Intoxication Withdrawal: No Have you been hit, kicked, punched, or otherwise hurt by someone within the past year? If so, by whom?: No Do you feel safe in your current relationship?: No Is there a partner from a previous relationship who is making you feel unsafe now?: No Are you made to feel afraid or neglected: No Advance Directives: Yes Advance Directives Information Provided: No Advance Directives on File: No Advance Directives Date on File: 02/05/21 Do you have thoughts of harming others: None Do you have a plan to hurt others: No Plan Recently lost weight without trying: Yes How much weight loss: 14-23 pounds Eating poorly because of decreased appetite: Yes Nutrition screen score: 5 Nutrition Risks: Poor intake 0-25% >4 days Patient : No : No Poor oral hygiene: No service: No Current occupational status: retired Meds Allergies Allergy/AdvReac Type Severity Reaction Status Date / Time Penicillins Allergy Intermediate RASH Verified 02/05/21 15:05 penicillin V Allergy Unknown Rash Verified 02/05/21 15:05 From [facility]OLOFT AdvReac Unknown SWEATS, Uncoded 02/05/21 15:05 JITTERY Active Medications: Current Medications Generic Name Dose Route Start Last Admin Trade Name Freq PRN Reason Stop Dose Admin Albuterol Sulfate 1 puff 02/05/21 13:24 Albuterol Sulfate 90 Mcg 8 Gm Inhaler INHALE QID PRN Shortness Of Breath Or Wheezing Aspirin 81 mg 02/06/21 09:00 02/06/21 08:22 Aspirin 81 Mg Tab.Chew PO 81 mg DAILY RADHA Administration Bisacodyl 10 mg 02/05/21 13:24 Bisacodyl 10 Mg Supp.Rect KS DAILY PRN Constipation Calcium Carbonate 500 mg 02/05/21 17:00 02/06/21 08:23 Calcium Carbonate 500 Mg Tablet PO 500 mg BIDWM RADHA Administration Diltiazem HCl 180 mg 02/06/21 09:00 02/06/21 08:24 Diltiazem Hcl Cd 180 Mg Cap.Er.24h PO 180 mg DAILY RADHA Administration Protocol Fluoxetine HCl 40 mg 02/06/21 09:00 02/06/21 08:22 Fluoxetine Hcl 20 Mg Capsule PO 40 mg DAILY RADHA Administration Fluticasone/Vilanterol 1 puff 02/06/21 08:00 02/06/21 07:44 Fluticasone/Vilanterol 200/25 Blst.W.Dev INHALE Not Given RDAILY RADHA Furosemide 40 mg 02/05/21 18:00 02/06/21 08:23 Furosemide 40 Mg/4 Ml Vial IVPUSH 40 mg BID@0900,1800 RADHA Administration Protocol Heparin Sodium (Porcine) 2,600 unit 02/05/21 11:03 02/06/21 10:52 Heparin Sodium,Porcine 5,000 Unit/Ml Vial 40 unit/kg (2600 unit) 2,600 unit IVPUSH Administration BOLUS PRN 40 unit/kg - Heparin Protocol Heparin Sodium (Porcine) 5,200 unit 02/05/21 11:03 Heparin Sodium,Porcine 5,000 Unit/Ml Vial 80 unit/kg (5200 unit) IVPUSH BOLUS PRN 80 unit/kg - Heparin Protocol Heparin Sodium/Sodium Chloride 25,000 unit in 250 mls @ 0 mls/hr 02/05/21 11:30 02/06/21 12:20 IVCONT 11 units/kg/hr .Q0M RADHA 7.19 mls/hr Administration Protocol Per Protocol Ceftriaxone Sodium 1 gm/ 50 mls @ 100 mls/hr 02/06/21 18:00 Sodium Chloride IV Q24H RADHA Azithromycin 500 mg/ Sodium 250 mls @ 125 mls/hr 02/06/21 07:30 02/06/21 11:20 Chloride IV Infused Q24H RADHA Infusion Loratadine 10 mg 02/06/21 09:00 02/06/21 08:24 Loratadine 10 Mg Tablet PO 10 mg DAILY RADHA Administration Methylprednisolone Sodium Succinate 40 mg 02/05/21 14:00 02/06/21 14:46 Methylprednisolone Sod Succ 40 Mg/Ml Vial IVPUSH 40 mg Q12H RADHA Administration Metoprolol Tartrate 25 mg 02/06/21 08:45 02/06/21 09:54 Metoprolol Tartrate 25 Mg Tablet PO 25 mg DAILY RADHA Administration Protocol Mirtazapine 15 mg 02/05/21 21:00 02/05/21 21:00 Mirtazapine 15 Mg Tablet PO 15 mg BEDTIME RADHA Administration Montelukast Sodium 10 mg 02/05/21 21:00 02/05/21 21:00 Montelukast Sodium 10 Mg Tablet PO 10 mg BEDTIME RADHA Administration Non-Formulary Medication 1 inhalation 02/06/21 09:00 Umeclidinium [Incruse Ellipta] INHALE DAILY [facility] Omeprazole 40 mg 02/06/21 06:30 02/06/21 06:14 Omeprazole 40 Mg Capsule.Dr PO 40 mg DAILY@0630 RADHA Administration Sodium Chloride 3 ml 02/05/21 16:00 02/06/21 14:47 0.9 % Sodium Chloride Flush 3 Ml Syringe IVFLUSH 3 ml QSHIFT RADHA Administration Vitamin D 125 mcg 02/06/21 09:00 02/06/21 08:23 Cholecalciferol (Vitamin D3) 25 Mcg Tablet PO 125 mcg DAILY RADHA Administration Home Medications Medication Instructions Recorded Confirmed Last Taken Type albuterol sulfate [ProAir HFA] 1 puff INHALATION QID PRN 02/05/21 02/05/21 Unknown History alendronate [Fosamax] 70 mg PO QWEEK 02/05/21 02/05/21 Unknown History aspirin 81 mg PO DAILY 02/05/21 02/05/21 Unknown History bisacodyl [Dulcolax (bisacodyl)] 10 mg KS DAILY PRN 02/05/21 02/05/21 Unknown History calcium carbonate [Oyster Shell 500 mg PO BID 02/05/21 02/05/21 Unknown History Calcium] cholecalciferol (vitamin D3) 5,000 unit PO DAILY 02/05/21 02/05/21 Unknown History [Vitamin D3] diltiazem HCl 180 mg PO DAILY 02/05/21 02/05/21 Unknown History fluoxetine [Prozac] 40 mg PO DAILY 02/05/21 02/05/21 Unknown History fluticasone propion-salmeterol 1 puff INHALATION BID 02/05/21 02/05/21 Unknown History [Advair Diskus] fluticasone propionate [Flonase] 1 spray INTRANASAL DAILY PRN 02/05/21 02/05/21 Unknown History guaifenesin [Robitussin] 200 mg PO Q4H PRN 02/05/21 02/05/21 Unknown History levofloxacin [Levaquin] 500 mg PO DAILY 02/05/21 02/05/21 Unknown History loratadine [Claritin] 10 mg PO DAILY 02/05/21 02/05/21 Unknown History metoprolol tartrate 0.5 tab PO DAILY 02/05/21 02/05/21 Unknown History mirtazapine [Remeron] 15 mg PO BEDTIME 02/05/21 02/05/21 Unknown History montelukast [Singulair] 10 mg PO QPM 02/05/21 02/05/21 Unknown History omeprazole 40 mg PO DAILY 02/05/21 02/05/21 Unknown History prednisone 7.5 mg PO DAILY 02/05/21 02/05/21 Unknown History umeclidinium [Incruse Ellipta] 1 inh INHALATION DAILY 02/05/21 02/05/21 Unknown History Physical Exam Vital Signs: Vital Signs: Last Vital Signs Temp 96.8 F 02/06/21 15:04 Pulse 90 02/06/21 15:04 Resp 18 02/06/21 15:04 BP 100/61 02/06/21 15:04 Pulse Ox 93 02/06/21 15:04 Oxygen Flow Rate 4 02/05/21 08:05 Body Mass Index 23.9 GENERAL APPEARANCE: Short of breath, on high-flow nasal cannula NECK: no carotid bruit, no obvious jugular venous distention. SKIN: no suspicious lesions, warm and dry. HEART: no murmurs, irregular rate and rhythm. LUNGS: clear to auscultation anteriorly. ABDOMEN: soft, nontender. EXTREMITIES: no edema. PERIPHERAL PULSES: equal. NEUROLOGIC: No gross deficits, AAO X 3 Results Labs and Meds Result diagrams: 02/06/21 10:19 02/06/21 06:05 Lab results: Laboratory Results - last 24 hr 02/05/21 02/05/21 02/05/21 18:58 19:57 23:22 WBC RBC Hgb Hct MCV MCH MCHC RDW Plt Count MPV Absolute Nucleated RBC Nucleated RBC % (auto) PT INR PTT (Heparin Protocol) 119.0 H* D 97.8 H Sodium 139 Potassium 3.7 Chloride 101 Carbon Dioxide 22 Anion Gap 20 BUN 32 H Creatinine 1.33 Estim Creat Clear Calc 28.3 Estimated GFR 38 Random Glucose 131 H D Calcium 8.0 L Magnesium 2.1 Respiratory Panel [place] Adenovirus (Rapid PCR) B.pert (TEM-PCR) B.parapertussis DNA PCR C. pneumoniae DNA (PCR) Coronavirus OC43 (PCR) Coronavirus HKU1 (PCR) Coronavirus 229E (PCR) Coronavirus NL63 (PCR) Human Metapneumovir PCR Influenza A (RT-PCR) Influenza B (RT-PCR) M. pneumoniae (PCR) Parainfluenza 1 (PCR) Parainfluenza 2 (PCR) Parainfluenza 3 (PCR) Parainfluenza 4 (PCR) RSV (PCR) Entero/Rhino (PCR) SARS-CoV-2 RNA (RT-PCR) 02/06/21 02/06/21 02/06/21 02:55 05:44 05:44 WBC 9.9 RBC 4.14 L Hgb 10.6 L Hct 35.4 L MCV 85.5 MCH 25.6 L MCHC 29.9 L RDW 16.8 H Plt Count 248 MPV 10.5 Absolute Nucleated RBC 0.000 Nucleated RBC % (auto) 0.0 PT 13.5 H INR 1.1 PTT (Heparin Protocol) 56.7 D Sodium Potassium Chloride Carbon Dioxide Anion Gap BUN Creatinine Estim Creat Clear Calc Estimated GFR Random Glucose Calcium Magnesium Respiratory Panel [place] Adenovirus (Rapid PCR) B.pert (TEM-PCR) B.parapertussis DNA PCR C. pneumoniae DNA (PCR) Coronavirus OC43 (PCR) Coronavirus HKU1 (PCR) Coronavirus 229E (PCR) Coronavirus NL63 (PCR) Human Metapneumovir PCR Influenza A (RT-PCR) Influenza B (RT-PCR) M. pneumoniae (PCR) Parainfluenza 1 (PCR) Parainfluenza 2 (PCR) Parainfluenza 3 (PCR) Parainfluenza 4 (PCR) RSV (PCR) Entero/Rhino (PCR) SARS-CoV-2 RNA (RT-PCR) 02/06/21 02/06/21 02/06/21 06:05 10:19 10:19 WBC 9.0 RBC 3.92 L Hgb 10.2 L Hct 33.6 L MCV 85.7 MCH 26.0 L MCHC 30.4 L RDW 16.7 H Plt Count 257 MPV 10.3 Absolute Nucleated RBC 0.000 Nucleated RBC % (auto) 0.0 PT INR PTT (Heparin Protocol) 46.4 L Sodium 140 Potassium 3.9 Chloride 102 Carbon Dioxide 23 Anion Gap 19 BUN 35 H Creatinine 1.25 Estim Creat Clear Calc 30.1 Estimated GFR 41 Random Glucose 110 Calcium 8.1 L Magnesium 2.1 Respiratory Panel [place] Adenovirus (Rapid PCR) B.pert (TEM-PCR) B.parapertussis DNA PCR C. pneumoniae DNA (PCR) Coronavirus OC43 (PCR) Coronavirus HKU1 (PCR) Coronavirus 229E (PCR) Coronavirus NL63 (PCR) Human Metapneumovir PCR Influenza A (RT-PCR) Influenza B (RT-PCR) M. pneumoniae (PCR) Parainfluenza 1 (PCR) Parainfluenza 2 (PCR) Parainfluenza 3 (PCR) Parainfluenza 4 (PCR) RSV (PCR) Entero/Rhino (PCR) SARS-CoV-2 RNA (RT-PCR) 02/06/21 11:13 WBC RBC Hgb Hct MCV MCH MCHC RDW Plt Count MPV Absolute Nucleated RBC Nucleated RBC % (auto) PT INR PTT (Heparin Protocol) Sodium Potassium Chloride Carbon Dioxide Anion Gap BUN Creatinine Estim Creat Clear Calc Estimated GFR Random Glucose Calcium Magnesium Respiratory Panel [place] See Note Adenovirus (Rapid PCR) Not Detected B.pert (TEM-PCR) Not Detected B.parapertussis DNA PCR Not Detected C. pneumoniae DNA (PCR) Not Detected Coronavirus OC43 (PCR) Not Detected Coronavirus HKU1 (PCR) Not Detected Coronavirus 229E (PCR) Not Detected Coronavirus NL63 (PCR) Not Detected Human Metapneumovir PCR Not Detected Influenza A (RT-PCR) Not Detected Influenza B (RT-PCR) Not Detected M. pneumoniae (PCR) Not Detected Parainfluenza 1 (PCR) Not Detected Parainfluenza 2 (PCR) Not Detected Parainfluenza 3 (PCR) Not Detected Parainfluenza 4 (PCR) Not Detected RSV (PCR) Not Detected Entero/Rhino (PCR) Not Detected SARS-CoV-2 RNA (RT-PCR) Not Detected Assessment and Plan (1) HTN (hypertension): Status: Acute (2) Pneumonia: Qualifiers: Laterality: left Lung location: unspecified part of lung Pneumonia type: due to unspecified organism Qualified Code(s): J18.9 - Pneumonia, unspecified organism Status: Acute (3) NSTEMI (non-ST elevated myocardial infarction): Status: Acute 85-year-old female who is presenting for shortness of breath and concern for pneumonia. She has mildly abnormal troponin level with a flat trend. No chest pain. This is likely a type 2 injury from her pneumonia. Continue antibiotics. She has known history of coronary artery disease and had RCA stent in the past. No clear evidence of atrial fibrillation right now. Her telemetry and ECG is showing sinus rhythm with premature atrial complexes. Check echocardiogram to assess LV. We will follow along with you. Thank you for allowing me to participate in the care of your patient. Please feel free to contact me if you have any questions. Procedures Date of Service Date of Service: 02/06/21
[2021-02-06 16:17] LABS: Procalcitonin 0.18 ng/mL
[2021-02-06 17:29] LABS: PTT Heparin Drip 87.4 SEC (53-77.9)
[2021-02-06] MEDS: cefTRIAXone sodium 1 GM in 0.9 % Sodium Chloride 50 ML IV (17:41)
[2021-02-06] MEDS: Albuterol Sulfate 90 MCG 8 GM INHALER 1 PUFF INHALE (19:33)
[2021-02-06] MEDS: Montelukast Sodium 10 MG TABLET PO (20:01)
[2021-02-06] MEDS: Mirtazapine 15 MG TABLET PO (20:01)
[2021-02-06] MEDS: Benzonatate 100 MG CAPSULE PO (22:46)
[2021-02-06 23:54] LABS: PTT Heparin Drip 55.3 SEC (53-77.9)
[2021-02-07] VITALS (16 sets, daily range): BP systolic 87–138; BP diastolic 62–89; PULSE 89–122; RESP 18–23; TEMP 36.3–36.7; O2SAT 91–97
[2021-02-07] MEDS: methylPREDNISolone Sod Succ 40 MG/ML VIAL IVPUSH ×2 (00:28→16:07)
[2021-02-07] MEDS: Albuterol/Iprat 2.5/0.5MG 3 ML AMPUL.NEB INHALE ×3 (00:36→11:12)
[2021-02-07] MEDS: Omeprazole 40 MG CAPSULE.DR PO (05:59)
[2021-02-07] MEDS: Azithromycin 500 MG in 0.9 % Sodium Chloride 250 ML 125 MG IV (06:13)
--- NOTE | 2021-02-07 06:36 | MHC.PIE ---
late entry p; pt c/o cough, pt noted with sob and rhonchi lung sounds i; dr alaniz notified; new order tessalon 100 mg po tid prn. duoneb q4 prn. e; pt cont to cough but not as much per pt, will cont to moniotor
[2021-02-07 06:45] LABS: Hematocrit 33.5 % (37-47); Hemoglobin 10.1 g/dl (12.0-16.0); Mean Corpuscular HGB Conc 30.1 g/dl (31.0-35.0); Mean Corpuscular Hemoglobin 25.6 pg (27.0-33.0); Mean Platelet Volume 10.5 fL (9.4-12.3); NRBC Pct Auto 0.2 /100WBC (0.0-0.2); Platelet Count 280 X10*3/uL (160-400); Red Blood Count 3.94 X10*6/uL (4.20-5.50); Red Cell Distribution Width 16.9 % (11.0-16.0); White Blood Count 12.6 X10*3/uL (4.8-10.8)
[2021-02-07 06:51] LABS: PTT Heparin Drip 51.5 SEC (53-77.9)
[2021-02-07 07:12] LABS: B Type Natriuretic Peptide 3856 pg/mL (<100)
[2021-02-07 07:25] LABS: Anion Gap 19 (12-20); Calcium 8.2 mg/dL (8.4-10.2); Carbon Dioxide 25 mmol/L (22-29); Chloride 100 mmol/L (96-108); Creatinine Clr Calc Pharmacy 21.5; Estimated Glomerular Filt Rate 28; Glucose Fasting 100 mg/dL (60-99); Magnesium 2.3 mg/dL (1.6-2.6); Potassium 4.2 mmol/L (3.3-5.1); Sodium 140 mmol/L (135-145)
[2021-02-07] MEDS: Fluticasone/Vilanterol 200/25 BLST.W.DEV 1 PUFF INHALE (07:27)
[2021-02-07] MEDS: Heparin Sodium,Porcine 5,000 UNIT/ML VIAL 2600 UNIT IVPUSH (07:39)
[2021-02-07 07:43] LABS: Blood Urea Nitrogen 54 mg/dL (9-16)
[2021-02-07] MEDS: 0.9 % Sodium Chloride Flush 3 ML SYRINGE IVFLUSH ×3 (07:45→21:55)
[2021-02-07] MEDS: Aspirin 81 MG TAB.CHEW PO (11:15)
[2021-02-07] MEDS: Cholecalciferol (Vitamin D3) 25 MCG TABLET 125 MCG PO (11:15)
[2021-02-07] MEDS: FLUoxetine HCl 20 MG CAPSULE 40 MG PO (11:15)
[2021-02-07] MEDS: Loratadine 10 MG TABLET PO (11:15)
--- NOTE | 2021-02-07 11:19 | MHC.CM.PN ---
Per ROUNDS discussion, Patient is not yet medically cleared for dc (2 IV ABT).DC plan is to return to LTC at [facility] and CM will follow for dc planning.
--- NOTE | 2021-02-07 11:31 | MHC.CLN ---
RE: CONSULT PT REPORTS POOR PO UBW REPORTED BY PT [id number]# PREVIOUS WT HX REVEALS 145# (09/12/19) PT DOES NOT CURRENTLY TRIGGER FOR SIGNIFICANT WT LOSS DIET RX: CARDIAC-APPROPRIATE VARIABLE PO RECOMMEND ENSURE BID TO INCREASE KCALS-PT RECEPTIVE (PREFERS VANILLA) SUPPLEMENT PROVIDES 700KCALS, 40G PROTEIN MONITOR PO INTAKE CLOSELY
--- NOTE | 2021-02-07 13:00 | PM.IDPN ---
Subjective Subjective Date of Service: 02/07/21 Interval History: She looks worse today. She is on high flow oxygen. Procalcitonin is .18. She is on day 2 Ceftriaxone and Azithromycin and is on Doxycycline. Sputum is pending,Legionella pending and strep pneumonia pending. WBC is 12,000. She complains of shortness of breath/ Critical Care Time (minutes): 15 Objective Data Labs CBC & Chem 7: 02/08/21 05:59 02/08/21 05:59 Labs: Laboratory Results - last 24 hr 02/06/21 02/06/21 02/06/21 14:07 16:56 23:36 WBC RBC Hgb Hct MCV MCH MCHC RDW Plt Count MPV Absolute Nucleated RBC Nucleated RBC % (auto) PTT (Heparin Protocol) 87.4 H D 55.3 D Sodium Potassium Chloride Carbon Dioxide Anion Gap BUN Creatinine Estim Creat Clear Calc Estimated GFR Fasting Glucose Calcium Magnesium B-Natriuretic Peptide Procalcitonin 0.18 02/07/21 02/07/21 02/07/21 05:50 05:50 05:50 WBC 12.6 H RBC 3.94 L Hgb 10.1 L Hct 33.5 L MCV 85.0 MCH 25.6 L MCHC 30.1 L RDW 16.9 H Plt Count 280 MPV 10.5 Absolute Nucleated RBC 0.020 H Nucleated RBC % (auto) 0.2 PTT (Heparin Protocol) Sodium 140 Potassium 4.2 Chloride 100 Carbon Dioxide 25 Anion Gap 19 BUN 54 H D Creatinine 1.75 H Estim Creat Clear Calc 21.5 Estimated GFR 28 Fasting Glucose 100 H Calcium 8.2 L Magnesium 2.3 B-Natriuretic Peptide 3856 H Procalcitonin 02/07/21 05:50 WBC RBC Hgb Hct MCV MCH MCHC RDW Plt Count MPV Absolute Nucleated RBC Nucleated RBC % (auto) PTT (Heparin Protocol) 51.5 L Sodium Potassium Chloride Carbon Dioxide Anion Gap BUN Creatinine Estim Creat Clear Calc Estimated GFR Fasting Glucose Calcium Magnesium B-Natriuretic Peptide Procalcitonin Microbiology Microbiology Results: Microbiology 02/05/21 09:22 Blood - Venous Blood Culture - Preliminary No growth after 48 hours. 02/05/21 09:10 Blood - Venous Blood Culture - Preliminary No growth after 48 hours. 02/06/21 15:25 Sputum - Expectorated Gram Stain - Final 06/01/21 15:25 Sputum - Expectorated Sputum Culture - Preliminary Culture in progress. Physical Exam Vital Signs: Vital Signs: Last Vital Signs Temp 98.0 F 02/07/21 11:15 Pulse 105 H 02/07/21 11:15 Resp 23 H 02/07/21 11:15 BP 131/83 02/07/21 11:15 Pulse Ox 95 02/07/21 11:15 Oxygen Flow Rate 4 02/05/21 08:05 Body Mass Index 23.9 Const: General: cooperative Orientation/consciousness: patient oriented x3 HENMT: Head: Yes normal to inspection Mouth: Normal oral and palatal mucosa present Eyes: General: appearance normal, both eyes and all related structures Resp: Effort & Inspection: labored and nasal flaring Cardio: Rate: regular rate Rhythm: regular rhythm GI: Palpation (GI): Soft to palpation and nontender Skin: General skin exam: no rashes or lesions noted Neuro: General: patient oriented x3 Assessment and Plan Assessment and plan (1) Bronchiectasis: Status: Acute (2) Pneumonia: Problem details: She has COPD and worsening respiratory status She has been on antibiotics There is bronchiectasis/early pneumonia,concern over worsening in hospital now despite treatment Renal function is worsening and prognosis is concerning Status: Acute Assessment and Plan: May switch to Vancomycin and Cefepime Continue Azithromycin Check nares MRSA Time Spent With Patient Time: Total time spent is greater than 50% in coordination of care (as documented) at patient's floor/unit and/or counseling patient: Time with patient: 15 - 24 minutes
[2021-02-07] MEDS: vancomycin HCL 750 MG in 0.9 % Sodium Chloride 250 ML 265 MG IV (14:18)
[2021-02-07 14:35] LABS: PTT Heparin Drip 89.4 SEC (53-77.9)
--- NOTE | 2021-02-07 15:44 | PM.PNCARD ---
Subjective Subjective Date of Service: 02/07/21 Interval history: Short of breath. Feeling tired. Blood pressure has been low. Echocardiogram report reviewed with the patient. Physical Exam Vital Signs: Last Vital Signs Temp 97.5 F 02/07/21 14:58 Pulse 96 02/07/21 14:58 Resp 18 02/07/21 15:00 BP 111/79 02/07/21 14:58 Pulse Ox 94 02/07/21 14:58 Oxygen Flow Rate 4 02/05/21 08:05 Body Mass Index 23.9 ENERAL APPEARANCE: Short of breath, on high-flow nasal cannula NECK: no carotid bruit, positive hepatic jugular reflux. SKIN: no suspicious lesions, warm and dry. HEART: no murmurs, irregular rate and rhythm. LUNGS: Bilateral expiratory wheezes. ABDOMEN: soft, nontender. EXTREMITIES: no edema. PERIPHERAL PULSES: equal. NEUROLOGIC: No gross deficits, AAO X 3 Results Labs and Meds Result diagrams: 02/07/21 05:50 02/07/21 05:50 Lab results: Laboratory Results - last 24 hr 02/06/21 02/06/21 02/06/21 14:07 16:56 23:36 WBC RBC Hgb Hct MCV MCH MCHC RDW Plt Count MPV Absolute Nucleated RBC Nucleated RBC % (auto) PTT (Heparin Protocol) 87.4 H D 55.3 D Sodium Potassium Chloride Carbon Dioxide Anion Gap BUN Creatinine Estim Creat Clear Calc Estimated GFR Fasting Glucose Calcium Magnesium B-Natriuretic Peptide Procalcitonin 0.18 02/07/21 02/07/21 02/07/21 05:50 05:50 05:50 WBC 12.6 H RBC 3.94 L Hgb 10.1 L Hct 33.5 L MCV 85.0 MCH 25.6 L MCHC 30.1 L RDW 16.9 H Plt Count 280 MPV 10.5 Absolute Nucleated RBC 0.020 H Nucleated RBC % (auto) 0.2 PTT (Heparin Protocol) Sodium 140 Potassium 4.2 Chloride 100 Carbon Dioxide 25 Anion Gap 19 BUN 54 H D Creatinine 1.75 H Estim Creat Clear Calc 21.5 Estimated GFR 28 Fasting Glucose 100 H Calcium 8.2 L Magnesium 2.3 B-Natriuretic Peptide 3856 H Procalcitonin 02/07/21 02/07/21 05:50 14:02 WBC RBC Hgb Hct MCV MCH MCHC RDW Plt Count MPV Absolute Nucleated RBC Nucleated RBC % (auto) PTT (Heparin Protocol) 51.5 L 89.4 H D Sodium Potassium Chloride Carbon Dioxide Anion Gap BUN Creatinine Estim Creat Clear Calc Estimated GFR Fasting Glucose Calcium Magnesium B-Natriuretic Peptide Procalcitonin Imaging Radiologist's impression: Impressions Chest X-Ray 02/07/21 08:00 IMPRESSION: Bilateral regions of interstitial and airspace disease with perihilar component likely related to edema. There is persistence of the left upper lobe disease and now with region of disease within the right upper lobe. This may be related to interstitial or atypical pneumonitis and edema may be related to pulmonary edema of cardiogenic or noncardiogenic etiology. Progress Note: A&P Assessment and plan (1) Acute on chronic combined systolic and diastolic CHF (congestive heart failure): Status: Acute Assessment and Plan: Pleasant 85-year-old female presenting with shortness of breath with concern for pneumonia and echocardiography showing severe cardiomyopathy with EF of 15 20%. She has known history of coronary artery disease with. Inferior wall MN in 2008 for which she underwent PCI with bare metal stent. She had mild circumflex disease at that time. Currently her left ventricular function is severely reduced. She has severe mitral annular calcification with moderate mitral regurgitation. Her aortic valve area is calculated at 0.91 but the 2D images are not consistent with severe aortic stenosis. I think the Cardizem and metoprolol should be held for now. She does not have atrial fibrillation. She has sinus rhythm with premature atrial complexes. I think we should try low-dose hydralazine 25 mg 3 times a day to see if her afterload can be adjusted and we can improve her forward flow. If she tolerates it then I will add low-dose isosorbide dinitrate. We will follow along with you. Thank you for allowing me to participate in the care of your patient. Please feel free to contact me if you have any questions. Fall Risk Details Current Medications: Current Medications Generic Name Dose Route Start Last Admin Trade Name Freq PRN Reason Stop Dose Admin Albuterol Sulfate 1 puff 02/05/21 13:24 02/06/21 19:33 Albuterol Sulfate 90 Mcg 8 Gm Inhaler INHALE 1 puff QID PRN Administration Shortness Of Breath Or Wheezing Albuterol/Ipratropium 3 ml 02/06/21 22:23 02/07/21 11:12 Albuterol/Iprat 2.5/0.5mg 3 Ml Ampul.Neb INHALE 3 ml Q4H PRN Administration Shortness of Breath/Wheezing Aspirin 81 mg 02/06/21 09:00 02/07/21 11:15 Aspirin 81 Mg Tab.Chew PO 81 mg DAILY RADHA Administration Benzonatate 100 mg 02/06/21 22:23 02/06/21 22:46 Benzonatate 100 Mg Capsule PO 100 mg TID PRN Administration Cough Bisacodyl 10 mg 02/05/21 13:24 Bisacodyl 10 Mg Supp.Rect TN DAILY PRN Constipation Calcium Carbonate 500 mg 02/05/21 17:00 02/07/21 11:15 Calcium Carbonate 500 Mg Tablet PO 500 mg BIDWM RADHA Administration Fluoxetine HCl 40 mg 02/06/21 09:00 02/07/21 11:15 Fluoxetine Hcl 20 Mg Capsule PO 40 mg DAILY RADHA Administration Fluticasone/Vilanterol 1 puff 02/06/21 08:00 02/07/21 07:27 Fluticasone/Vilanterol 200/25 Blst.W.Dev INHALE 1 puff RDAILY RADHA Administration Heparin Sodium (Porcine) 2,600 unit 02/05/21 11:03 02/07/21 07:39 Heparin Sodium,Porcine 5,000 Unit/Ml Vial 40 unit/kg (2600 unit) 2,600 unit IVPUSH Administration BOLUS PRN 40 unit/kg - Heparin Protocol Heparin Sodium (Porcine) 5,200 unit 02/05/21 11:03 Heparin Sodium,Porcine 5,000 Unit/Ml Vial 80 unit/kg (5200 unit) IVPUSH BOLUS PRN 80 unit/kg - Heparin Protocol Heparin Sodium/Sodium Chloride 25,000 unit in 250 mls @ 0 mls/hr 02/05/21 11:30 02/07/21 14:51 IVCONT 9 units/kg/hr .Q0M RADHA 5.88 mls/hr Titration Protocol Per Protocol Azithromycin 500 mg/ Sodium 250 mls @ 125 mls/hr 02/06/21 07:30 02/07/21 08:20 Chloride IV Infused Q24H RADHA Infusion Cefepime HCl 1 gm/ Sodium 50 mls @ 100 mls/hr 02/07/21 13:15 Chloride IV Q12H RADHA Vancomycin HCl 750 mg/ Sodium 265 mls @ 265 mls/hr 02/07/21 14:00 02/07/21 14:24 Chloride IV 0 mls/hr Q24H RADHA Infusion Loratadine 10 mg 02/06/21 09:00 02/07/21 11:15 Loratadine 10 Mg Tablet PO 10 mg DAILY RADHA Administration Methylprednisolone Sodium Succinate 40 mg 02/05/21 14:00 02/07/21 00:28 Methylprednisolone Sod Succ 40 Mg/Ml Vial IVPUSH 40 mg Q12H RADHA Administration Mirtazapine 15 mg 02/05/21 21:00 02/06/21 20:01 Mirtazapine 15 Mg Tablet PO 15 mg BEDTIME RADHA Administration Montelukast Sodium 10 mg 02/05/21 21:00 02/06/21 20:01 Montelukast Sodium 10 Mg Tablet PO 10 mg BEDTIME RADHA Administration Non-Formulary Medication 1 inhalation 02/06/21 09:00 Umeclidinium [Incruse Ellipta] INHALE DAILY [facility] Omeprazole 40 mg 02/06/21 06:30 02/07/21 05:59 Omeprazole 40 Mg Capsule. PO 40 mg DAILY@0630 [facility] Administration Pharmacy Consult 1 each 02/07/21 13:11 Consult Rx Vancomycin Dosing MISCELLANE DAILY PRN Consult order Sodium Chloride 3 ml 02/05/21 16:00 02/07/21 07:45 0.9 % Sodium Chloride Flush 3 Ml Syringe IVFLUSH 3 ml QSHIFT RADHA Administration Vitamin D 125 mcg 02/06/21 09:00 02/07/21 11:15 Cholecalciferol (Vitamin D3) 25 Mcg Tablet PO 125 mcg DAILY RADHA Administration Time Spent With Patient Time: Total time spent is greater than 50% in coordination of care (as documented) at patient's floor/unit and/or counseling patient: Time with patient: 25 - 35 minutes Procedures Date of Service Date of Service: 02/07/21
--- NOTE | 2021-02-07 15:50 | MHC.SL.SWA ---
Speech Pathologist Impression: Risk of Aspiration Oralpharyngeal Dysphagia Risk of Aspiration Due to: History of Pneumonia Poor PO Intake Reduced Cognition Dysphasia Diet Status: Downgrade Liquid Consistency and Strategies for Safe Swallow: Liquid Intake Recommendation: Honey Thick Liquid Intake Strategies: Small Sips No Straws Solid Food Consistency: Dietary Recommendations: Grnd/Mech Altered (NDD2) Oral Medication Intake: Crushed with Puree Compensatory Strategies and Precautions to be Taken for Safe Swallow: Sitting Upright (90 deg) No Straw Small Bites and Sips Alternate Liquids/Solids Rate of Ingestion Change Supervision While Eating and Drinking for Safe Swallow: Total Supervision (1:1) Foods to Avoid: Swallowing Recommended Treatments: Compens. Strategy Educat. 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 Cable Television Line Technician Clinican/Clinical Fellow: No Supervisory Statement: I have reviewed and agree with the student/clinical fellow's documentation: N/A Speech Language Pathologist: Jessica Arvizu M.A., CCC-SORTING LIVESTOCK WORKER
[2021-02-07] MEDS: cefEPime HCl 1 GM in 0.9 % Sodium Chloride 50 ML IV (16:24)
[2021-02-07] MEDS: hydrALAZINE HCl 25 MG TABLET PO ×2 (16:25→21:54)
--- NOTE | 2021-02-07 16:37 | P.PNIM_ITS ---
Subjective Subjective Date of Service: 02/07/21 Interval History: the patient was seen and evaluated this morning Laying in bed, feels and chills about the possibility of . Denies any fever, chills or shortness of breath but feels weak overall No reported other overnight events. Systemic review: No fever, chills but generalized weakness No chest pain, palpitation No shortness of breath or coughing but requiring high-flow oxygen No abdominal pain, nausea or vomiting No urinary symptoms No any rash or wounds Physical Exam Vital Signs: Vital Signs: Last Vital Signs Temp 97.5 F 02/07/21 14:58 Pulse 96 02/07/21 14:58 Resp 18 02/07/21 15:00 BP 111/79 02/07/21 14:58 Pulse Ox 94 02/07/21 14:58 Oxygen Flow Rate 4 02/05/21 08:05 Body Mass Index 23.9 Const: Other: Constitutional : Alert, oriented, in mild distress but looks comfortable overall Neck : Normal inspection, Supple Cardiovascular : RRR, S1 S2, +2 bilateral lower extremity edema Respiratory : Decrease bilateral air entry, basal bilateral crackles, wheezes or rhonchi Gastrointestinal: soft, lax, Normal bowel sounds, Non tender Skin : Warm/Dry Neurological : Alert & oriented x3, No focal deficit Objective Data Current Medications Generic Name Dose Route Start Last Admin Trade Name Freq PRN Reason Stop Dose Admin Albuterol Sulfate 1 puff 02/05/21 13:24 02/06/21 19:33 Albuterol Sulfate 90 Mcg 8 Gm Inhaler INHALE 1 puff QID PRN Administration Shortness Of Breath Or Wheezing Albuterol/Ipratropium 3 ml 02/06/21 22:23 02/07/21 11:12 Albuterol/Iprat 2.5/0.5mg 3 Ml Ampul.Neb INHALE 3 ml Q4H PRN Administration Shortness of Breath/Wheezing Aspirin 81 mg 02/06/21 09:00 02/07/21 11:15 Aspirin 81 Mg Tab.Chew PO 81 mg DAILY RADHA Administration Benzonatate 100 mg 02/06/21 22:23 02/06/21 22:46 Benzonatate 100 Mg Capsule PO 100 mg TID PRN Administration Cough Bisacodyl 10 mg 02/05/21 13:24 Bisacodyl 10 Mg Supp.Rect ID DAILY PRN Constipation Calcium Carbonate 500 mg 02/05/21 17:00 02/07/21 16:25 Calcium Carbonate 500 Mg Tablet PO 500 mg BIDWM RADHA Administration Fluoxetine HCl 40 mg 02/06/21 09:00 02/07/21 11:15 Fluoxetine Hcl 20 Mg Capsule PO 40 mg DAILY RADHA Administration Fluticasone/Vilanterol 1 puff 02/06/21 08:00 02/07/21 07:27 Fluticasone/Vilanterol 200/25 Blst.W.Dev INHALE 1 puff RDAILY RADHA Administration Heparin Sodium (Porcine) 2,600 unit 02/05/21 11:03 02/07/21 07:39 Heparin Sodium,Porcine 5,000 Unit/Ml Vial 40 unit/kg (2600 unit) 2,600 unit IVPUSH Administration BOLUS PRN 40 unit/kg - Heparin Protocol Heparin Sodium (Porcine) 5,200 unit 02/05/21 11:03 Heparin Sodium,Porcine 5,000 Unit/Ml Vial 80 unit/kg (5200 unit) IVPUSH BOLUS PRN 80 unit/kg - Heparin Protocol Hydralazine HCl 25 mg 02/07/21 16:00 02/07/21 16:25 Hydralazine Hcl 25 Mg Tablet PO 25 mg TID RADHA Administration Protocol Heparin Sodium/Sodium Chloride 25,000 unit in 250 mls @ 0 mls/hr 02/05/21 11:30 02/07/21 14:51 IVCONT 9 units/kg/hr .Q0M RADHA 5.88 mls/hr Titration Protocol Per Protocol Azithromycin 500 mg/ Sodium 250 mls @ 125 mls/hr 02/06/21 07:30 02/07/21 08:20 Chloride IV Infused Q24H RADHA Infusion Cefepime HCl 1 gm/ Sodium 50 mls @ 100 mls/hr 02/07/21 13:15 02/07/21 16:24 Chloride IV 100 mls/hr Q12H RADHA Administration Vancomycin HCl 750 mg/ Sodium 265 mls @ 265 mls/hr 02/07/21 14:00 02/07/21 16:14 Chloride IV 265 mls/hr Q24H RADHA Administration Loratadine 10 mg 02/06/21 09:00 02/07/21 11:15 Loratadine 10 Mg Tablet PO 10 mg DAILY RADHA Administration Methylprednisolone Sodium Succinate 40 mg 02/05/21 14:00 02/07/21 16:07 Methylprednisolone Sod Succ 40 Mg/Ml Vial IVPUSH 40 mg Q12H RADHA Administration Mirtazapine 15 mg 02/05/21 21:00 02/06/21 20:01 Mirtazapine 15 Mg Tablet PO 15 mg BEDTIME RADHA Administration Montelukast Sodium 10 mg 02/05/21 21:00 02/06/21 20:01 Montelukast Sodium 10 Mg Tablet PO 10 mg BEDTIME RADHA Administration Non-Formulary Medication 1 inhalation 02/06/21 09:00 Umeclidinium [Incruse Ellipta] INHALE DAILY [facility] Omeprazole 40 mg 02/06/21 06:30 02/07/21 05:59 Omeprazole 40 Mg Capsule. PO 40 mg DAILY@0630 [facility] Administration Pharmacy Consult 1 each 02/07/21 13:11 Consult Rx Vancomycin Dosing MISCELLANE DAILY PRN Consult order Sodium Chloride 3 ml 02/05/21 16:00 02/07/21 16:07 0.9 % Sodium Chloride Flush 3 Ml Syringe IVFLUSH 3 ml QSHIFT [facility] Administration Vitamin D 125 mcg 02/06/21 09:00 02/07/21 11:15 Cholecalciferol (Vitamin D3) 25 Mcg Tablet PO 125 mcg DAILY RADHA Administration Labs CBC & Chem 7: 02/07/21 05:50 02/07/21 05:50 Microbiology Microbiology Results: Microbiology 02/05/21 09:22 Blood - Venous Blood Culture - Preliminary No growth after 48 hours. 02/05/21 09:10 Blood - Venous Blood Culture - Preliminary No growth after 48 hours. 02/06/21 15:25 Sputum - Expectorated Gram Stain - Final 02/06/21 15:25 Sputum - Expectorated Sputum Culture - Preliminary Culture in progress. Assessment and Plan (1) A-fib: Status: Acute Assessment and Plan: 85F presented with sob and cough, found to have hypoxia, pneumonia, nstemi Severe sepsis Secondary to pneumonia CT chest showed possible includes atypical pneumonia, ARDS, pulmonary edema continue vancomycin, cefepime, azithro Negative resp viral panel Pending urine strep and legionella blood cultures negative Id input appreciated acute hypoxic respiratory failure acute on chronic systolic and diastolic CHF and NSTEMI Hold IV lasix for acute kidney injury repeat CXR wean high flow as tolerated Pulmonology input appreciated, treat for CHF with IV Lasix NSTEMI Continue with iv heparin for 48 hours echo showed significantly decreased ejection fraction of 15-20 % cardio input appreciated Continue aspirin Metoprolol, Kobe on hold for low blood pressure and Arturo I Difficulty swallowing 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
[2021-02-07 20:46] LABS: PTT Heparin Drip 66.8 SEC (53-77.9)
[2021-02-07] MEDS: Montelukast Sodium 10 MG TABLET PO (21:54)
[2021-02-07] MEDS: Mirtazapine 15 MG TABLET PO (21:54)
[2021-02-08] VITALS (11 sets, daily range): BP systolic 70–131; BP diastolic 50–74; PULSE 88–126; RESP 20–24; TEMP 35.8–36.3; O2SAT 90–97
[2021-02-08 02:32] LABS: PTT Heparin Drip 47.9 SEC (53-77.9)
[2021-02-08] MEDS: Heparin Sodium,Porcine/1/2NS 25,000 UNIT/250 ML IV.SOLN 7.19 UNIT IVCONT (03:01)
[2021-02-08] MEDS: Heparin Sodium,Porcine 5,000 UNIT/ML VIAL 2600 UNIT IVPUSH (03:04)
[2021-02-08] MEDS: cefEPime HCl 1 GM in 0.9 % Sodium Chloride 50 ML IV ×2 (03:10→15:14)
[2021-02-08] MEDS: methylPREDNISolone Sod Succ 40 MG/ML VIAL IVPUSH ×2 (03:11→15:27)
[2021-02-08 07:22] LABS: Hematocrit 33.7 % (37-47); Hemoglobin 10.3 g/dl (12.0-16.0); Mean Corpuscular HGB Conc 30.6 g/dl (31.0-35.0); Mean Corpuscular Hemoglobin 25.7 pg (27.0-33.0); Mean Platelet Volume 10.6 fL (9.4-12.3); Platelet Count 268 X10*3/uL (160-400); Red Blood Count 4.01 X10*6/uL (4.20-5.50); Red Cell Distribution Width 17.3 % (11.0-16.0); White Blood Count 10.8 X10*3/uL (4.8-10.8)
[2021-02-08 07:29] LABS: NRBC Pct Auto 1.2 /100WBC (0.0-0.2)
[2021-02-08] MEDS: Fluticasone/Vilanterol 200/25 BLST.W.DEV 1 PUFF INHALE (07:56)
[2021-02-08 08:14] LABS: Anion Gap 22 (12-20); Blood Urea Nitrogen 78 mg/dL (9-16); Calcium 8.4 mg/dL (8.4-10.2); Carbon Dioxide 21 mmol/L (22-29); Chloride 101 mmol/L (96-108); Creatinine Clr Calc Pharmacy 17.4; Estimated Glomerular Filt Rate 22; Glucose Random 115 mg/dL (60-115); Potassium 4.5 mmol/L (3.3-5.1); Sodium 139 mmol/L (135-145)
[2021-02-08] MEDS: 0.9 % Sodium Chloride Flush 3 ML SYRINGE IVFLUSH (08:26)
[2021-02-08] MEDS: Azithromycin 500 MG in 0.9 % Sodium Chloride 250 ML 125 MG IV (08:26)
[2021-02-08] MEDS: Aspirin 81 MG TAB.CHEW PO (08:31)
[2021-02-08] MEDS: hydrALAZINE HCl 25 MG TABLET PO (08:31)
[2021-02-08] MEDS: FLUoxetine HCl 20 MG CAPSULE 40 MG PO (08:31)
[2021-02-08] MEDS: Loratadine 10 MG TABLET PO (08:31)
[2021-02-08] MEDS: Cholecalciferol (Vitamin D3) 25 MCG TABLET 125 MCG PO (08:34)
--- NOTE | 2021-02-08 10:18 | MHC.SL.SWA ---
Speech Pathologist Impression: Risk of Aspiration Oralpharyngeal Dysphagia Risk of Aspiration Due to: History of Pneumonia Poor PO Intake Reduced Cognition Dysphasia Diet Status: Continue recommendation Liquid Consistency and Strategies for Safe Swallow: Liquid Intake Recommendation: Honey Thick Liquid Intake Strategies: Small Sips No Straws Solid Food Consistency: Dietary Recommendations: Grnd/Mech Altered (NDD2) Oral Medication Intake: Crushed with Puree Compensatory Strategies and Precautions to be Taken for Safe Swallow: Sitting Upright (90 deg) No Straw Small Bites and Sips Alternate Liquids/Solids Rate of Ingestion Change Supervision While Eating and Drinking for Safe Swallow: Total Supervision (1:1) Swallowing Recommended Treatments: Compens. Strategy Educat. Recommendation for Speech: Inpatient Speech Therapy Comment: SLATE CUTTER will continue to follow during hospitalization. Gemologist Clinican/Clinical Fellow: No Supervisory Statement: I have reviewed and agree with the student/clinical fellow's documentation: N/A Speech Language Pathologist: Jessica Arvizu M.A., [facility]-SLATE CUTTER
[2021-02-08 10:22] LABS: PTT Heparin Drip 107.7 SEC (53-77.9)
[2021-02-08] MEDS: Albuterol/Iprat 2.5/0.5MG 3 ML AMPUL.NEB INHALE ×2 (10:45→15:34)
[2021-02-08] MEDS: Heparin Sodium,Porcine 5,000 UNIT/ML VIAL 5000 UNIT SUBCUT (12:43)
[2021-02-08 12:50] LABS: Vancomycin Random 8.8 mcg/mL (15-20)
--- NOTE | 2021-02-08 14:44 | P.PNIM_ITS ---
Subjective Subjective Date of Service: 02/08/21 Interval History: the patient was seen and evaluated this morning Laying in bed, feels tired and mildly short of breath requiring high-flow oxygen of 50 L Decreased urine output significantly Denies any fever, chills or shortness of breath but feels weak overall No reported other overnight events. Systemic review: No fever, chills but generalized weakness No chest pain, palpitation No shortness of breath or coughing but requiring high-flow oxygen No abdominal pain, nausea or vomiting No urinary symptoms No any rash or wounds Physical Exam Vital Signs: Vital Signs: Last Vital Signs Temp 96.5 F L 02/08/21 07:53 Pulse 88 02/08/21 10:47 Resp 24 H 02/08/21 10:56 BP 107/74 02/08/21 07:53 Pulse Ox 97 02/08/21 07:53 Oxygen Flow Rate 4 02/05/21 08:05 Body Mass Index 23.9 Const: Other: Constitutional : Alert, oriented, in mild distress but looks comfortable overall Neck : Normal inspection, Supple Cardiovascular : RRR, S1 S2, +2 bilateral lower extremity edema Respiratory : Decrease bilateral air entry, basal bilateral crackles, wheezes or rhonchi on high flow oxygen supplement Gastrointestinal: soft, lax, Normal bowel sounds, Non tender Skin : Warm/Dry Neurological : Alert & oriented x3, No focal deficit Objective Data Current Medications Generic Name Dose Route Start Last Admin Trade Name Freq PRN Reason Stop Dose Admin Albuterol Sulfate 1 puff 02/05/21 13:24 02/06/21 19:33 Albuterol Sulfate 90 Mcg 8 Gm Inhaler INHALE 1 puff QID PRN Administration Shortness Of Breath Or Wheezing Albuterol/Ipratropium 3 ml 02/06/21 22:23 02/08/21 10:45 Albuterol/Iprat 2.5/0.5mg 3 Ml Ampul.Neb INHALE 3 ml Q4H PRN Administration Shortness of Breath/Wheezing Aspirin 81 mg 02/06/21 09:00 02/08/21 08:31 Aspirin 81 Mg Tab.Chew PO 81 mg DAILY RADHA Administration Benzonatate 100 mg 02/06/21 22:23 02/06/21 22:46 Benzonatate 100 Mg Capsule PO 100 mg TID PRN Administration Cough Bisacodyl 10 mg 02/05/21 13:24 Bisacodyl 10 Mg Supp.Rect AR DAILY PRN Constipation Calcium Carbonate 500 mg 02/05/21 17:00 02/08/21 08:31 Calcium Carbonate 500 Mg Tablet PO 500 mg BIDWM RADHA Administration Fluoxetine HCl 40 mg 02/06/21 09:00 02/08/21 08:31 Fluoxetine Hcl 20 Mg Capsule PO 40 mg DAILY RADHA Administration Fluticasone/Vilanterol 1 puff 02/06/21 08:00 02/08/21 07:56 Fluticasone/Vilanterol 200/25 Blst.W.Dev INHALE 1 puff RDAILY RADHA Administration Heparin Sodium (Porcine) 5,000 unit 02/08/21 12:00 02/08/21 12:43 Heparin Sodium,Porcine 5,000 Unit/Ml Vial SUBCUT 5,000 unit Q12H RADHA Administration Hydralazine HCl 25 mg 02/07/21 16:00 02/08/21 08:31 Hydralazine Hcl 25 Mg Tablet PO 25 mg TID RADHA Administration Protocol Azithromycin 500 mg/ Sodium 250 mls @ 125 mls/hr 02/06/21 07:30 02/08/21 10:26 Chloride IV Infused Q24H RADHA Infusion Cefepime HCl 1 gm/ Sodium 50 mls @ 100 mls/hr 02/07/21 13:15 02/08/21 04:28 Chloride IV Infused Q12H RADHA Infusion Vancomycin HCl 1,000 mg/ 270 mls @ 270 mls/hr 02/08/21 17:00 Sodium Chloride IV Q48H RADHA Loratadine 10 mg 02/06/21 09:00 02/08/21 08:31 Loratadine 10 Mg Tablet PO 10 mg DAILY RADHA Administration Methylprednisolone Sodium Succinate 40 mg 02/05/21 14:00 02/08/21 03:11 Methylprednisolone Sod Succ 40 Mg/Ml Vial IVPUSH 40 mg Q12H RADHA Administration Mirtazapine 15 mg 02/05/21 21:00 02/07/21 21:54 Mirtazapine 15 Mg Tablet PO 15 mg BEDTIME RADHA Administration Montelukast Sodium 10 mg 02/05/21 21:00 02/07/21 21:54 Montelukast Sodium 10 Mg Tablet PO 10 mg BEDTIME RADHA Administration Non-Formulary Medication 1 inhalation 02/06/21 09:00 Umeclidinium [Incruse Ellipta] INHALE DAILY [facility] Omeprazole 40 mg 02/06/21 06:30 02/08/21 06:26 Omeprazole 40 Mg Capsule.Dr CHRISTINA Not Given DAILY@0630 [facility] Pharmacy Consult 1 each 02/07/21 13:11 Consult Rx Vancomycin Dosing MISCELLANE DAILY PRN Consult order Sodium Chloride 3 ml 02/05/21 16:00 02/08/21 08:26 0.9 % Sodium Chloride Flush 3 Ml Syringe IVFLUSH 3 ml QSHIFT [facility] Administration Vitamin D 125 mcg 02/06/21 09:00 02/08/21 08:34 Cholecalciferol (Vitamin D3) 25 Mcg Tablet PO 125 mcg DAILY [facility] Administration Labs CBC & Chem 7: 02/08/21 05:59 02/08/21 05:59 Microbiology Microbiology Results: Microbiology 02/06/21 15:25 Sputum - Expectorated Gram Stain - Final 02/06/21 15:25 Sputum - Expectorated Sputum Culture - Preliminary Staphylococcus aureus 02/05/21 09:22 Blood - Venous Blood Culture - Preliminary No growth after 48 hours. 02/05/21 09:10 Blood - Venous Blood Culture - Preliminary No growth after 48 hours. Assessment and Plan (1) A-fib: Status: Acute Assessment and Plan: 85F presented with sob and cough, found to have hypoxia, pneumonia, nstemi Hypotension Blood pressure of 80/50 Secondary to multiorgan failure To give IV fluid, midodrine Start discussions about goals of care with patient and family Severe sepsis , resolved Secondary to pneumonia CT chest showed possible includes atypical pneumonia, ARDS, pulmonary edema continue vancomycin, cefepime, azithro Negative resp viral panel Pending urine strep and legionella blood cultures negative Id input appreciated, broad-spectrum coverage acute hypoxic respiratory failure acute on chronic systolic and diastolic CHF and NSTEMI Still on 50 L of high flow oxygen supplement Hold IV lasix for acute kidney injury repeat CXR the showing signs of fluid overload wean high flow as tolerated Pulmonology input appreciated, treat for CHF with IV Lasix NSTEMI Finished IV heparin treatment echo showed significantly decreased ejection fraction of 15-20 % cardio input appreciated Continue aspirin Metoprolol, Kobe on hold for low blood pressure and Arturo Difficulty swallowing 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
[2021-02-08] MEDS: 0.9 % Sodium Chloride 1,000 ML 999 ML IV (15:03)
--- NOTE | 2021-02-08 15:17 | PM.PNCARD ---
Subjective Subjective Date of Service: 02/08/21 Interval history: SOB, looks distressed. No CP Physical Exam Vital Signs: Last Vital Signs Temp 96.8 F 02/08/21 15:04 Pulse 126 H 02/08/21 15:04 Resp 20 02/08/21 15:04 BP 70/50 L 02/08/21 15:04 Pulse Ox 90 L 02/08/21 15:04 Oxygen Flow Rate 4 02/05/21 08:05 Body Mass Index 23.9 GENERAL APPEARANCE: Short of breath, on high-flow nasal cannula NECK: no carotid bruit, positive hepatic jugular reflux. SKIN: no suspicious lesions, warm and dry. HEART: no murmurs, irregular rate and rhythm. LUNGS: Bilateral expiratory wheezes. ABDOMEN: soft, nontender. EXTREMITIES: no edema. PERIPHERAL PULSES: equal. NEUROLOGIC: No gross deficits, AAO X 3 Results Labs and Meds Result diagrams: 02/08/21 05:59 02/08/21 05:59 Lab results: Laboratory Results - last 24 hr 02/07/21 02/08/21 02/08/21 20:32 02:16 05:59 WBC 10.8 RBC 4.01 L Hgb 10.3 L Hct 33.7 L MCV 84.0 MCH 25.7 L MCHC 30.6 L RDW 17.3 H Plt Count 268 MPV 10.6 Absolute Nucleated RBC 0.130 H Nucleated RBC % (auto) 1.2 H Smear Path Review SEE NOTE PTT (Heparin Protocol) 66.8 D 47.9 L D Sodium Potassium Chloride Carbon Dioxide Anion Gap BUN Creatinine Estim Creat Clear Calc Estimated GFR Random Glucose Calcium Random Vancomycin 02/08/21 02/08/21 02/08/21 05:59 09:17 11:45 WBC RBC Hgb Hct MCV MCH MCHC RDW Plt Count MPV Absolute Nucleated RBC Nucleated RBC % (auto) Smear Path Review PTT (Heparin Protocol) 107.7 H* D Sodium 139 Potassium 4.5 Chloride 101 Carbon Dioxide 21 L Anion Gap 22 H BUN 78 H Creatinine 2.16 H Estim Creat Clear Calc 17.4 Estimated GFR 22 Random Glucose 115 Calcium 8.4 Random Vancomycin 8.8 L Progress Note: A&P Assessment and plan (1) Acute kidney failure: Status: Acute (2) Acute on chronic combined systolic and diastolic CHF (congestive heart failure): Status: Acute Assessment and Plan: Pleasant 85-year-old female presented for shortness of breath and pneumonia and has been found to have severe cardiomyopathy. She is significantly tachypneic and continues to be on high-flow oxygen. Kidney function has worsened. Cardizem and metoprolol were held. Hydralazine as needed. If she tolerated this then nitrates can be added. Had discussion with the son who is considering palliative care/hospice. I think this is quite appropriate with her advanced cardiomyopathy. Thank you for allowing me to participate in the care of your patient. Please feel free to contact me if you have any questions. Fall Risk Details Current Medications: Current Medications Generic Name Dose Route Start Last Admin Trade Name Freq PRN Reason Stop Dose Admin Albuterol Sulfate 1 puff 02/05/21 13:24 02/06/21 19:33 Albuterol Sulfate 90 Mcg 8 Gm Inhaler INHALE 1 puff QID PRN Administration Shortness Of Breath Or Wheezing Albuterol/Ipratropium 3 ml 02/06/21 22:23 02/08/21 10:45 Albuterol/Iprat 2.5/0.5mg 3 Ml Ampul.Neb INHALE 3 ml Q4H PRN Administration Shortness of Breath/Wheezing Aspirin 81 mg 02/06/21 09:00 02/08/21 08:31 Aspirin 81 Mg Tab.Chew PO 81 mg DAILY RADHA Administration Benzonatate 100 mg 02/06/21 22:23 02/06/21 22:46 Benzonatate 100 Mg Capsule PO 100 mg TID PRN Administration Cough Bisacodyl 10 mg 02/05/21 13:24 Bisacodyl 10 Mg Supp.Rect MN DAILY PRN Constipation Calcium Carbonate 500 mg 02/05/21 17:00 02/08/21 08:31 Calcium Carbonate 500 Mg Tablet PO 500 mg BIDWM RADHA Administration Fluoxetine HCl 40 mg 02/06/21 09:00 02/08/21 08:31 Fluoxetine Hcl 20 Mg Capsule PO 40 mg DAILY RADHA Administration Fluticasone/Vilanterol 1 puff 02/06/21 08:00 02/08/21 07:56 Fluticasone/Vilanterol 200/25 Blst.W.Dev INHALE 1 puff RDAILY RADHA Administration Heparin Sodium (Porcine) 5,000 unit 02/08/21 12:00 02/08/21 12:43 Heparin Sodium,Porcine 5,000 Unit/Ml Vial SUBCUT 5,000 unit Q12H RADHA Administration Hydralazine HCl 25 mg 02/07/21 16:00 02/08/21 08:31 Hydralazine Hcl 25 Mg Tablet PO 25 mg TID RADHA Administration Protocol Azithromycin 500 mg/ Sodium 250 mls @ 125 mls/hr 02/06/21 07:30 02/08/21 10:26 Chloride IV Infused Q24H RADHA Infusion Cefepime HCl 1 gm/ Sodium 50 mls @ 100 mls/hr 02/07/21 13:15 02/08/21 15:14 Chloride IV 100 mls/hr Q12H RADHA Administration Vancomycin HCl 1,000 mg/ 270 mls @ 270 mls/hr 02/08/21 17:00 Sodium Chloride IV Q48H RADHA Sodium Chloride 1,000 mls @ 999 mls/hr 02/08/21 15:00 02/08/21 15:03 Ns IV 02/08/21 16:00 999 mls/hr .Q1H1M RADHA Administration Loratadine 10 mg 02/06/21 09:00 02/08/21 08:31 Loratadine 10 Mg Tablet PO 10 mg DAILY RADHA Administration Methylprednisolone Sodium Succinate 40 mg 02/05/21 14:00 02/08/21 03:11 Methylprednisolone Sod Succ 40 Mg/Ml Vial IVPUSH 40 mg Q12H RADHA Administration Mirtazapine 15 mg 02/05/21 21:00 02/07/21 21:54 Mirtazapine 15 Mg Tablet PO 15 mg BEDTIME RADHA Administration Montelukast Sodium 10 mg 02/05/21 21:00 02/07/21 21:54 Montelukast Sodium 10 Mg Tablet PO 10 mg BEDTIME RADHA Administration Non-Formulary Medication 1 inhalation 02/06/21 09:00 Umeclidinium [Incruse Ellipta] INHALE DAILY [facility] Omeprazole 40 mg 02/06/21 06:30 02/08/21 06:26 Omeprazole 40 Mg Capsule.Dr CHRISTINA Not Given DAILY@0630 [facility] Pharmacy Consult 1 each 02/07/21 13:11 Consult Rx Vancomycin Dosing MISCELLANE DAILY PRN Consult order Sodium Chloride 3 ml 02/05/21 16:00 02/08/21 08:26 0.9 % Sodium Chloride Flush 3 Ml Syringe IVFLUSH 3 ml QSHIFT RADHA Administration Vitamin D 125 mcg 02/06/21 09:00 02/08/21 08:34 Cholecalciferol (Vitamin D3) 25 Mcg Tablet PO 125 mcg DAILY RADHA Administration Time Spent With Patient Time: Total time spent is greater than 50% in coordination of care (as documented) at patient's floor/unit and/or counseling patient: Time with patient: 25 - 35 minutes Procedures Date of Service Date of Service: 02/08/21
[2021-02-08] MEDS: Midodrine HCl 5 MG TABLET PO (15:22)
[2021-02-08] MEDS: Morphine Sulfate 2 MG/ML CARTRIDGE 1 MG IVPUSH (16:15)
[2021-02-08] MEDS: ondansetron HCL 4 MG/2 ML VIAL IVPUSH (16:15)
--- NOTE | 2021-02-08 16:40 | W.MHC.ACPN ---
Advanced Care Planning Note Advanced Care Planning Note Discussed with: patient Time spent (in minutes): 18 Narrative: I had a chance to meet with the patient his healthcare proxy her son Hussein to discuss her ongoing medical problems in an hospital course. The patient was admitted to the hospital with respiratory complained of difficulty breathing treated mainly as CHF exacerbation, possible pneumonia and pneumonitis with Lasix antibiotics and steroids but the patient has been deteriorating since admission with kidney function worsening with oliguria. We discussed goals of care of the patient stay including continue pursuing treatment regardless of the fact that the patient is deteriorating in her numbers are getting worse or to consider comfort measures. We agreed by the end of into discussion that the patient might benefit from being on comfort measures if things are not improving by tomorrow. Will repeat blood test and evaluated the patient in the morning then will have a discussion with both her and her son to decide what is the best next step. Problems Discussed (1) A-fib: (2) Acute kidney failure: (3) Acute on chronic combined systolic and diastolic CHF (congestive heart failure): (4) Acute respiratory failure with hypoxia:
--- NOTE | 2021-02-08 17:27 | PM.DS ---
DS: Providers Provider Date of Service: 02/08/21 Date of admission: 02/05/21 12:26 Primary care physician: Washington Martínez MD Consults: 02/05/21 11:03 Consult to Cardiology Stat Consulting Provider: Cristiano Hill Reason for consultation: AFib, elevated troponin, bilobar pneumonia Has provider been notified: Yes 02/05/21 13:24 Consult to Cardiology Routine Consulting Provider: Cristiano Hill Reason for consultation: chf, nstemi Consult to Infectious Diseases Routine Consulting Provider: Maia Ruiz Reason for consultation: pneumonia 02/07/21 09:14 Consult to Pulmonology Routine Consulting Provider: Andi Frost Reason for consultation: Respiratory failure with hypoxia with multifocal infx on CT chest for eval. 02/08/21 10:28 Consult to Nephrology Routine Consulting Provider: Kirk Mueller Reason for consultation: HAILYE for your kind eval and rec DS: Diagnosis Discharge Diagnosis (1) A-fib: Status: Acute (2) Acute kidney failure: Status: Acute (3) Acute on chronic combined systolic and diastolic CHF (congestive heart failure): Status: Acute (4) Acute respiratory failure with hypoxia: Status: Acute (5) Bronchiectasis: Status: Acute (6) NSTEMI (non-ST elevated myocardial infarction): Status: Acute DS: Medications Discharge Medications Home Medications: Home Medications Medication Instructions Recorded Confirmed albuterol sulfate [ProAir HFA] 1 puff INHALATION QID PRN 02/05/21 02/05/21 alendronate [Fosamax] 70 mg PO QWEEK 02/05/21 02/05/21 aspirin 81 mg PO DAILY 02/05/21 02/05/21 bisacodyl [Dulcolax (bisacodyl)] [address] DAILY PRN 02/05/21 02/05/21 calcium carbonate [Oyster Shell 500 mg PO BID 02/05/21 02/05/21 Calcium] cholecalciferol (vitamin D3) 5,000 unit PO DAILY 02/05/21 02/05/21 [Vitamin D3] diltiazem HCl 180 mg PO DAILY 02/05/21 02/05/21 fluoxetine [Prozac] 40 mg PO DAILY 02/05/21 02/05/21 fluticasone propion-salmeterol 1 puff INHALATION BID 02/05/21 02/05/21 [Advair Diskus] fluticasone propionate [Flonase] 1 spray INTRANASAL DAILY PRN 02/05/21 02/05/21 guaifenesin [Robitussin] 200 mg PO Q4H PRN 02/05/21 02/05/21 levofloxacin [Levaquin] 500 mg PO DAILY 02/05/21 02/05/21 loratadine [Claritin] 10 mg PO DAILY 02/05/21 02/05/21 metoprolol tartrate 0.5 tab PO DAILY 02/05/21 02/05/21 mirtazapine [Remeron] 15 mg PO BEDTIME 02/05/21 02/05/21 montelukast [Singulair] 10 mg PO QPM 02/05/21 02/05/21 omeprazole 40 mg PO DAILY 02/05/21 02/05/21 prednisone 7.5 mg PO DAILY 02/05/21 02/05/21 umeclidinium [Incruse Ellipta] 1 inh INHALATION DAILY 02/05/21 02/05/21 DS: Summary Hospital Course Hospital Course: Admission note HPI 85F presented complaining of shortness of breath and cough. patient is alert and oriented but having difficulty giving history due to shortness of breath, she was brought be EMS from care facility for complaint of sob and hypoxia. she had been treated for pneumonia with levaquin since 01/30/21. on day of presentation patients sob worsened as did her productive cough, she was noted to have hypoxia of 80% so EMS was called. in ED noted to have hypoxia, elevated bnp and troponin. She was seen by interactive graphic designer who recommended diuresis high flow, cardiology recommended IV heparin. she was given cefepime. Hospital course The patient was admitted to the hospital for hypoxia which was thought to be secondary to pneumonia or heart failure associated with evidence non ST elevation myocardial infarction. The patient was treated for NSTEMI with heparin, aspirin and statin for total 48 hours with fair response. Evaluated by Cardiology as an echo was done showing significant decrease of ejection fraction between 15-20%. The patient was noted to difficulty breathing more and requiring more oxygen started on high-flow oxygen for treatment of acute on chronic systolic CHF exacerbation with IV Lasix. Her kidney function to go ahead from hypoperfusion and possible medication with decreased urine output. Nephrology consulted but the patient kidney function continue to deteriorate. Images for chest were consistent with possible pneumonia, pneumonitis or CHF exacerbation. Evaluated by infectious disease specialist who started broad-spectrum antibiotic of vancomycin, cefepime and azithromycin. Blood cultures remain negative. Discussion about comfort measures started with the patient and her son and seem to be the best possible next step. The patient was found did on 02/08/2021 at 17:10. Pronounced at that time. Support was offered to the family. Time Spent with Patient Time attestation: Total time spent providing and/or coordinating discharge services: Discharge coordination time: Greater than 30 minutes Quality: Stroke Does the patient have a stroke diagnosis?: No Physical Exam Vital Signs: Vital Signs: Last Vital Signs Temp 96.8 F 02/08/21 15:04 Pulse 103 H 02/08/21 16:28 Resp 20 02/08/21 15:04 BP 103/62 02/08/21 16:28 Pulse Ox 90 L 02/08/21 15:04 Oxygen Flow Rate 4 02/05/21 08:05 Body Mass Index 23.9 Const: Other: DS: Data Data Completed and Pending Labs on day of discharge: Laboratory Results - last 24 hr 02/07/21 02/08/21 02/08/21 20:32 02:16 05:59 WBC 10.8 RBC 4.01 L Hgb 10.3 L Hct 33.7 L MCV 84.0 MCH 25.7 L MCHC 30.6 L RDW 17.3 H Plt Count 268 MPV 10.6 Absolute Nucleated RBC 0.130 H Nucleated RBC % (auto) 1.2 H Smear Path Review SEE NOTE PTT (Heparin Protocol) 66.8 D 47.9 L D Sodium Potassium Chloride Carbon Dioxide Anion Gap BUN Creatinine Estim Creat Clear Calc Estimated GFR Random Glucose Calcium Random Vancomycin 02/08/21 02/08/21 02/08/21 05:59 09:17 11:45 WBC RBC Hgb Hct MCV MCH MCHC RDW Plt Count MPV Absolute Nucleated RBC Nucleated RBC % (auto) Smear Path Review PTT (Heparin Protocol) 107.7 H* D Sodium 139 Potassium 4.5 Chloride 101 Carbon Dioxide 21 L Anion Gap 22 H BUN 78 H Creatinine 2.16 H Estim Creat Clear Calc 17.4 Estimated GFR 22 Random Glucose 115 Calcium 8.4 Random Vancomycin 8.8 L Preliminary micro results at discharge 02/06/21 15:25 Sputum Culture - Preliminary Sputum - Expectorated Staphylococcus aureus 02/05/21 09:22 Blood Culture - Preliminary Blood - Venous No growth after 48 hours. 02/05/21 09:10 Blood Culture - Preliminary Blood - Venous No growth after 48 hours. Discharge Plan Discharge Patient Disposition: Referrals: Washington Martínez MD [Primary Care Provider] - 1 Week Discharge Medications: No Action fluoxetine [Prozac] 40 mg Capsule 40 mg PO DAILY RF: 0 prednisone 10 mg Tablet 7.5 mg PO DAILY RF: 0 alendronate [Fosamax] 70 mg Tablet 70 mg PO QWEEK RF: 0 omeprazole 40 mg Capsule,Delayed Release(Dr/Ec) 40 mg PO DAILY RF: 0 guaifenesin [Robitussin] 100 mg/5 mL Liquid 200 mg PO Q4H PRN (Reason: Cough) RF: 0 calcium carbonate [Oyster Shell Calcium] 500 mg calcium (1,250 mg) Tablet 500 mg PO BID RF: 0 bisacodyl [Dulcolax (bisacodyl)] 10 mg Suppository [address] DAILY PRN (Reason: Constipation) RF: 0 fluticasone propion-salmeterol [Advair Diskus] 500-50 mcg/dose blister with device 1 puff inhalation BID RF: 0 aspirin 81 mg Tablet,Chewable 81 mg PO DAILY RF: 0 montelukast [Singulair] 10 mg Tablet 10 mg PO QPM RF: 0 mirtazapine [Remeron] 15 mg Tablet 15 mg PO BEDTIME RF: 0 levofloxacin [Levaquin] 500 mg Tablet 500 mg PO DAILY RF: 0 albuterol sulfate [ProAir HFA] 90 mcg/actuation Hfa Aerosol Inhaler 1 puff INHALATION QID PRN (Reason: Shortness Of Breath Or Wheezing) RF: 0 fluticasone propionate [Flonase] 50 mcg/actuation Todd,Suspension 1 spray INTRANASAL DAILY PRN (Reason: Allergy Symptoms) RF: 0 loratadine [Claritin] 10 mg Tablet 10 mg PO DAILY RF: 0 diltiazem HCl 180 mg Tablet Extended Release 24 Hr 180 mg PO DAILY RF: 0 metoprolol tartrate 25 mg tablet 0.5 tab PO DAILY RF: 0 cholecalciferol (vitamin D3) [Vitamin D3] 125 mcg (5,000 unit) Tablet 5,000 unit PO DAILY RF: 0 Incruse Ellipta 62.5 mcg/actuation Blister With Device 1 inh INHALATION DAILY RF: 0
--- NOTE | 2021-02-09 10:40 | MHC.CDI.RETR ---
Documented by User: Dionna Ball CCS, CDIS 02/09/21 10:44 Retrospective Query Please clarify if you have treated a probable/suspected/likely or confirmed: Consistency of documentation within the medical record: Severe sepsis due to pneumonia POA Please specify if known PLEASE DO NOT DELETE/MODIFY EXISTING CONTENT Additional information is needed in order to code to the highest accuracy and appropriate Severity of Illness (SOI). Please clarify the information noted below in your progress notes and discharge summary. Risk Factors/Clinical Indicators/Treatments ED: Sirs criteria RR 24 HR 105 WBC 11.4 LA 2.4 - IV Antibiotics, Oxygen H&P: Severe sepsis due to pna w acute hypoxic respiratory failure, a/c diastolic and systolic CHF, and NSTEMI. Progress note 02/06 - 02/07 - Severe sepsis due to pneumonia. CDS: Dionna Ball CCS, CDIS Contact Number: [phone] Please Review the information above and exercise your independent professional judgment in responding to the query. If you concur, pleas document in the PROGRESS NOTES and DISCHARGE SUMMARY. If you do not agree with the query, please document in the query above. THIS QUERY IS PART OF THE PERMANENT MEDICAL RECORD Documented by User: Hemalatha Garcia MD 02/13/21 17:53 Retrospective Query Provider Response: Other No severe sepsis
[2021-02-09 18:32] LABS: Strep Pneumo Ag urine Not Detected (Not Detected)
[2021-02-16 09:27] LABS: Legionella Ag Urine Not Detected (Not Detected)
== END 2021-02-08 17:15 | disposition expired | DRG 871 ==
LOC: HO.ED 12:07 → HO.EDOVER 12:36 → HO.IMC 12:45
PROVIDERS: Internal Medicine; Admitting Provider Internal Medicine; Emergency Provider Emergency Medicine Emergency Medical Services; PCP Internal Medicine; Visit Provider Student in an Organized Health Care Education/Training Program
DX: A41.9 Sepsis, unspecified organism (principal); J18.9 Pneumonia, unspecified organism; I21.4 Non-ST elevation (NSTEMI) myocardial infarction; J96.01 Acute respiratory failure with hypoxia; I50.43 Acute on chronic combined systolic (congestive) and diastolic (congestive) heart failure; J47.1 Bronchiectasis with (acute) exacerbation; J47.0 Bronchiectasis with acute lower respiratory infection; I42.9 Cardiomyopathy, unspecified; N17.9 Acute kidney failure, unspecified; R65.20 Severe sepsis without septic shock; I11.0 Hypertensive heart disease with heart failure; Z20.822 Contact with and (suspected) exposure to COVID-19; M81.0 Age-related osteoporosis without current pathological fracture; I25.10 Atherosclerotic heart disease of native coronary artery without angina pectoris; R13.10 Dysphagia, unspecified; Z88.0 Allergy status to penicillin; I48.91 Unspecified atrial fibrillation; I25.2 Old myocardial infarction; Z98.61 Coronary angioplasty status; Z79.51 Long term (current) use of inhaled steroids; Z79.52 Long term (current) use of systemic steroids; Z79.82 Long term (current) use of aspirin; Z79.83 Long term (current) use of bisphosphonates; Z79.899 Other long term (current) drug therapy; Z66 Do not resuscitate
CPT/HCPCS: 36415; 71045; 71250; 80048; 80053; 80202; 83605; 83690; 83735; 83880; 84145; 84484; 85025; 85027; 85610; 85730; 87040; 87070; 87077; 87147; 87186; 87205; 87449; 87633; 87635; 87899; 92610; 93005; 93306; 99285; J0456; J0692; J0696; J1940; J2270; J2405; J2920; J3370; Q9957